=== PATIENT | female | born 1950 | race Caucasian/White ===

== ENCOUNTER 2017-06-20 16:51 | Inpatient (IN) | payer OTHER ==
[~2017-06-20] VITALS: Ht 160 cm; Wt 104.8 kg
[~2017-06-20 16:51] MED LIST: IBUP-44 PO; RISP0.251 PO; VAS10 PO; [UNRECOGNIZED DRUG - CODE] PO; [UNRECOGNIZED DRUG - CODE] PO
[2017-06-20 16:53] VITALS: BP 146/73
--- NOTE | 2017-06-20 16:53 | NUR ---
PT BIBA TO BED 3 @ 6941
[2017-06-20] MEDS ORDERED: NACL 0.9% 500 ML IV SCH (16:54)
[2017-06-20] MEDS: methylPREDNISolone SS 125 MG/2 ML VIAL IVP ONE ×2 (16:55→19:20)
[2017-06-20] MEDS ORDERED: MAG SULF 2000 MG/WATER PREMIX 50 ML IV ONE (16:55)
[2017-06-20] MEDS ORDERED: ALBUTEROL 0.083% 2.5 MG/3 ML NEBU INH ONE ×2 (16:55→18:35)
--- NOTE | 2017-06-20 16:55 | NUR ---
Patient being evaluated by physician at bedside.
--- NOTE | 2017-06-20 17:05 | NUR ---
RT AT BEDSIDE.
--- NOTE | 2017-06-20 17:13 | NUR ---
LAB AT BEDSIDE.
[2017-06-20 17:18] LABS: BASOPHILS # (AUTO) 0.7 K/uL (0.00-0.22); EOSINOPHILS # (AUTO) 0.6 K/uL (0-0.4); LYMPHOCYTES # (AUTO) 1.9 K/uL (2.5-16.5); MEAN CORPUSCULAR HEMOGLOBIN 30 pg (27-31); MEAN CORPUSCULAR HGB CONC 32 g/dL (33-37); MEAN CORPUSCULAR VOLUME 93 fL (80-94); MONOCYTES # (AUTO) 1.2 K/uL (0.8-1.0); NEUTROPHILS # (AUTO) 7.5 K/uL (1.8-7.7); PLATELET COUNT (AUTO) 300 K/uL (140-450); RED BLOOD CELL COUNT(AUTO) 2.27 MIL/uL (4.20-5.40); RED CELL DISTRIBUTION WIDTH 13.8 % (11.6-13.7); WHITE BLOOD COUNT (AUTO) 11.9 K/uL (4.8-10.8)
[2017-06-20 17:27] LABS: HEMOGLOBIN 6.8 g/dL (12.0-16.0)
[2017-06-20 17:43] LABS: PROTHROMBIN TIME 10.3 secs (10.8-13.4)
[2017-06-20 18:33] LABS: ALBUMIN 2.7 g/dL (3.4-5.0); ANION GAP 17.4 (8-16); CARBON DIOXIDE 17.1 mmol/L (21-32); CREATININE 3.1 mg/dL (0.6-1.3); TOTAL BILIRUBIN 0.1 mg/dL (0.0-1.0)
[2017-06-20 18:38] LABS: POTASSIUM 6.5 mmol/L (3.5-5.1)
[2017-06-20] MEDS ORDERED: INSULIN HUMAN REGULAR 100 UNITS/ML 10 ML VIAL IVP ONE (18:40)
[2017-06-20] MEDS ORDERED: SODIUM POLYSTYRENE 15 GM/60 ML UDBTL PO ONE (18:40)
[2017-06-20] MEDS ORDERED: DEXTROSE 50% 50 ML SYR IVP ONE (18:40)
--- NOTE | 2017-06-20 18:40 | NUR ---
RT AT BEDSIDE.
[2017-06-20] MEDS ORDERED: methylPREDNISolone SS 125 MG/2 ML VIAL ONE (19:24)
--- NOTE | 2017-06-20 19:25 | NUR ---
GOT REPORT FROM [facility]. PT. RESTING IN BED, AAO X4, UNABLE TO AMBULATE. RESPIRATIIONS ON O 2 2 LPM VIA NC, EVEN AND UNLABORED, BL LUNG CLEAR. NO C/O S/SX OF THIS TIME. VSS, ER MADE AWARE OF PT. STATUS.
--- NOTE | 2017-06-20 19:25 | NUR ---
REPORT GIVEN TO HILARIO ESCOBEDO. PT MADE AWARE.
[2017-06-20] MEDS ORDERED: ACETAMINOPHEN 325 MG TAB PO PRN (19:45)
[2017-06-20] MEDS ORDERED: HYDROcodone/APAP 7.5/325 MG 1 TAB PO PRN (19:45)
[2017-06-20] MEDS ORDERED: ONDANSETRON 4 MG/2 ML VIAL IVP PRN (19:45)
[2017-06-20] MEDS ORDERED: SODIUM POLYSTYRENE 15 GM/60 ML UDBTL PO SCH (19:45)
--- NOTE | 2017-06-20 19:45 | NUR ---
Patient will be admitted to care of . Admited to TELEMETRY. Will go to room 111A. Belongings list completed. Report to MAN/HILARIO.
--- NOTE | 2017-06-20 19:48 | NUR ---
RECEIVED FROM ER PER ANU AWAKE AND ALERT. MONGOLIAN SPEAKING. ACCOMPANIED BY DAUGHTER. PT. HISTORY OF SCHIZOPHRENIA AND DEMENTIA PER DAUGHTER. PT. DX. OF HYPERKALEMIA. IVF SITE TO LEFT HAND #20. TAHO CATHETER IN PLACE. ORIENTED TO CALL LIGHT USE AND ROOM. RAPID RESPONSE DISCUSSED WITH DAUGHTER WHO SPEAKS GOOD ARABIC AND IS THE ONE TAKING CARE OF PT. TELEMETRY MONITORING. SKIN INTACT. NO EDEMA NOTED.
[2017-06-20 20:26] VITALS: BP 119/58
[2017-06-20] MEDS ORDERED: ALBUTEROL SULFATE/IPRATROPIU 3 ML SOL IH PRN (21:30)
[2017-06-20] MEDS ORDERED: DEXTROSE 50% 50 ML SYR IVP PRN (21:30)
[2017-06-20] MEDS: DOCUSATE SODIUM 100 MG GELCAP PO SCH (21:50)
[2017-06-20] MEDS: NACL 0.9% 1,000 ML IV SCH (21:50)
[2017-06-20 22:10] LABS: CHOL/HDL RATIO 3.6 (1-4.5); FREE T4 (FREE THYROXINE) 1.06 ng/dL (0.76-1.46); MAGNESIUM 2.4 mg/dL (1.8-2.4); PHOSPHORUS 5.9 mg/dL (2.5-4.9); THYROID STIMULATING HORMONE 3.27 uIU/mL (0.34-3.74)
[2017-06-20 22:29] LABS: ANION GAP 17.6 (8-16); CARBON DIOXIDE 16.8 mmol/L (21-32); CREATININE 3.1 mg/dL (0.6-1.3)
[2017-06-20 22:36] LABS: POTASSIUM 6.4 mmol/L (3.5-5.1)
[2017-06-20 23:40] LABS: APPEARANCE,URINE SL CLOUDY (CLEAR); BILIRUBIN,URINE NEGATIVE (NEGATIVE); BLOOD, URINE 1+ (NEGATIVE); COLOR,URINE YELLOW (YELLOW); LEUKOCYTE ESTERASE ,URINE 1+ (NEGATIVE); NITRITE, URINE NEGATIVE (NEGATIVE); PH,URINE 5.5 (5.0-9.0); UGLUCOSE 1+ (NEGATIVE)
--- NOTE | 2017-06-20 23:42 | NUR ---
PT. URINE SPECIMEN SENT TO LAB ORDERED. PT. STILL AWAKE AT THIS TIME. ENCOURAGED TO SLEEP. STATED SHE IS NOT SLEEPING YET RT SHE FEELS LIKE GOING BM. PT. GIVEN KAYEXALATE P.O. RT HYPERKALEMIA DX. MEDICATION USE EXPLAINED TO DAUGHTER AND PT. CALL LIGHT AT BEDSIDE FOR EASY ACCESS.
[2017-06-20 23:47] LABS: BARBITURATE, URINE NEG. ng/ml (NEG <=200); BENZODIAZEPINE, URINE NEG. ng/mL (NEG <=200); CANNABINOID, URINE NEG. ng/mL (NEG <=50); COCAINE, URINE NEG. ng/mL (NEG <=300); OPIATE, URINE NEG. ng/mL (NEG <=2000); PHENCYCLIDINE SCREEN,URINE NEG. ng/mL (NEG <=25)
[2017-06-21] VITALS: BP 133/52
[2017-06-21] MEDS ORDERED: THEOPHYLLINE 200 MG TABER PO SCH (00:40)
[2017-06-21 00:56] LABS: ANION GAP 17.8 (8-16); CARBON DIOXIDE 16.4 mmol/L (21-32); CREATININE 3.1 mg/dL (0.6-1.3); MAGNESIUM 2.6 mg/dL (1.8-2.4); PHOSPHORUS 5.5 mg/dL (2.5-4.9)
[2017-06-21] MEDS ORDERED: risperiDONE 1 MG TAB PO ONE (01:00)
[2017-06-21] MEDS ORDERED: THEOPHYLLINE 300 MG TABER PO ONE (01:00)
[2017-06-21 01:08] LABS: POTASSIUM 6.2 mmol/L (3.5-5.1)
[2017-06-21] MEDS: BENZTROPINE 1 MG TAB PO SCH ×2 (01:11→20:51)
[2017-06-21] MEDS ORDERED: risperiDONE 1 MG TAB ONE (01:17)
--- NOTE | 2017-06-21 01:18 | NUR ---
RISPERIDAL ORDERED P.O. ADMINISTERED. ABG RESULT METABOLIC ACIDOSIS AND K LEVEL OF 6.2 AND BUN 61 RELAYED TO RESIDENT MD ANGELA . AWARE OF IT AND NO FURTHER ORDERS AT THIS TIME. BREATHING TREATMENT GIVEN BY RESPIRATORY THERAPIST.
[2017-06-21 01:19] LABS: RBC,URINE 3-10 (FEW) /HPF (0-5); WBC,URINE 16-25 (MOD) /HPF (0-5)
[2017-06-21 01:20] LABS: URINE AMORPHOUS URATE 3+ /HPF (None Seen)
[2017-06-21] MEDS ORDERED: THEOPHYLLINE 200 MG TABER PO ONE ×3 (01:35→03:05)
--- NOTE | 2017-06-21 02:12 | NUR ---
THEOPHYLLINE P.O. ADMINISTERED ORDERED BY RESIDENT . MACHINE RUG CLEANER PROVIDED PT. WITH ONE. Addendum: 06/21/17 at 0217 by Natalya Vega RN THEOPHYLLINE P.O. 200 MG. ADMINISTERED ORDERED ONCE.
[2017-06-21 04:06] VITALS: BP 148/62
[2017-06-21] MEDS: NACL 0.9% 1,000 ML IV SCH ×2 (04:51→17:01)
[2017-06-21] MEDS ORDERED: cefTRIAXone 1,000 MG VIAL ONE (04:53)
[2017-06-21] MEDS: methylPREDNISolone SS 125 MG/2 ML VIAL IVP SCH ×3 (04:54→20:50)
--- NOTE | 2017-06-21 05:27 | NUR ---
ICENTIVE SPIROMETRY GIVEN PATIENT WAS UNABLE TO FOLLOW RT ORDERS.
[2017-06-21] MEDS: INSULIN LISPRO SLIDING SCALE 100 UNITS/ML VIAL SUBQ PRN ×2 (05:50→20:56)
[2017-06-21] MEDS: BLOOD GLUCOSE MONITORING 1 DEV DEV FS SCH ×4 (05:50→20:50)
--- NOTE | 2017-06-21 06:34 | NUR ---
PT. AWAKE AT THIS TIME. NO NOTED ADVERSE REACTIONS TO ROCEPHIN IVP INFUSED. TELEMETRY MONITORING. ABLE TO VERBALIZE WELL. NO PAIN COMPLAINTS DONE. ON 02 AT 2LPM/NC. 02 SAT AT 97-98 %.
[2017-06-21] MEDS: ALBUTEROL SULFATE/IPRATROPIU 3 ML SOL IH SCH ×3 (06:38→19:20)
--- NOTE | 2017-06-21 07:17 | NUR ---
ENDORSED TO THE NEXT RN FOR CONTINUITY OF CARE. AWAKE AT THIS TIME. NO COMPLAINTS DONE.
--- NOTE | 2017-06-21 07:20 | NUR ---
RECEIVED REPORT FROM NIGHT RN. PT RESTING IN BED. AAOX3. NO S/S OF ACUTE DISTRESS. PT DENIES PAIN. IV SITE PATENT AND INTACT. ON O2 2L NC. CALL LIGHT WITHIN REACH. TELE BOX IN PLACE. CALL LIGHT WITHIN REACH. SAFETY MEASURES ENSURED. WILL CONTINUE TO MONITOR.
[2017-06-21 07:30] LABS: BASOPHILS % (AUTO) 0.2 % (0.0-2.0); LYMPHOCYTES # (AUTO) 0.5 K/uL (2.5-16.5); LYMPHOCYTES % (AUTO) 2.4 % (20.5-51.1); MEAN CORPUSCULAR HEMOGLOBIN 31 pg (27-31); MEAN CORPUSCULAR HGB CONC 33 g/dL (33-37); MEAN CORPUSCULAR VOLUME 93 fL (80-94); MONOCYTES # (AUTO) 0.8 K/uL (0.8-1.0); MONOCYTES % (AUTO) 3.5 % (1.7-9.3); NEUTROPHILS % (AUTO) 93.9 % (42.2-75.2); PLATELET COUNT (AUTO) 245 K/uL (140-450); RED BLOOD CELL COUNT(AUTO) 2.24 MIL/uL (4.20-5.40); RED CELL DISTRIBUTION WIDTH 14.2 % (11.6-13.7)
[2017-06-21 08:00] VITALS: BP 119/67
[2017-06-21] MEDS ORDERED: AMLO10TA PO (08:00)
[2017-06-21] MEDS ORDERED: METO25TA PO (08:00)
[2017-06-21 08:34] LABS: ANION GAP 16.1 (8-16); CREATININE 2.9 mg/dL (0.6-1.3)
[2017-06-21 08:35] LABS: MAGNESIUM 2.6 mg/dL (1.8-2.4); PHOSPHORUS 5.6 mg/dL (2.5-4.9)
[2017-06-21] MEDS: METOPROLOL 50 MG TAB PO SCH ×2 (08:38→20:51)
[2017-06-21] MEDS: CALCIUM ACETATE 667 MG TAB PO SCH ×2 (08:38→17:02)
[2017-06-21] MEDS: LACTOBACILLUS RHAMNOSUS GG 1 EACH CAP PO SCH ×3 (08:38→17:00)
[2017-06-21] MEDS: LACTULOSE 20 GM/30 ML UDC PO SCH ×2 (08:39→20:50)
[2017-06-21] MEDS: FERROUS SULFATE 325 MG TABEC PO SCH ×3 (08:39→17:03)
[2017-06-21] MEDS: ASCORBIC ACID 500 MG TAB PO SCH (08:39)
[2017-06-21] MEDS: DOCUSATE SODIUM 100 MG GELCAP PO SCH ×2 (08:39→20:50)
[2017-06-21] MEDS: THEOPHYLLINE 200 MG TABER PO SCH ×2 (08:39→20:51)
[2017-06-21] MEDS: amLODIPine 5 MG TAB PO SCH (08:40)
[2017-06-21 08:42] LABS: POTASSIUM 6.1 mmol/L (3.5-5.1)
--- NOTE | 2017-06-21 08:47 | NUR ---
AM MEDS GIVEN WITH EDUCATION. PT VERBALIZED UNDERSTANDING. NO S/S OF ACUTE DISTRESS. PT DENIES PAIN. WILL CONTINUE TO MONITOR.
[2017-06-21] MEDS ORDERED: ENALAPRIL 10 MG TAB PO SCH (09:00)
--- NOTE | 2017-06-21 09:18 | NUR ---
PATIENT HAS BEEN SCREENED AND CATEGORIZED HIGH NUTRITION RISK. PATIENT WILL BE SEEN WITHIN 1-2 DAYS OF ADMISSION. 06/21/17-06/22/[address]
[2017-06-21 09:42] LABS: HEMATOCRIT 20.9 % (36-48); HEMOGLOBIN 6.9 g/dL (12.0-16.0)
[2017-06-21 09:43] LABS: WHITE BLOOD COUNT (AUTO) 22.3 K/uL (4.8-10.8)
[2017-06-21] MEDS ORDERED: BISACODYL 10 MG SUPP RC SCH (10:11)
[2017-06-21] MEDS ORDERED: SODIUM BICARBONATE 8.4% 50 MEQ in NACL 0.9% 1,000 ML IV SCH (11:00)
[2017-06-21 12:00] VITALS: BP 105/60
--- NOTE | 2017-06-21 12:46 | NUR ---
PT SLEEPING NO HHN GIVEN NO SIGNS OF DISTRESS NOTED AT THIS TIME
--- NOTE | 2017-06-21 13:17 | NUR ---
PT RESTING IN BED. NO S/S OF ACUTE DISTRESS. PER RAMSES FROM PHARMACY PT SHOULD HAVE CULTURELLE DAILY NOT TID. WILL HOLD 12 DOSE.
[2017-06-21] MEDS: SODIUM BICARBONATE 8.4% 75 MEQ in NACL 0.45% 1,000 ML IV SCH (14:00)
[2017-06-21 14:25] LABS: ANION GAP 17.2 (8-16); CARBON DIOXIDE 16.7 mmol/L (21-32); CREATININE 2.9 mg/dL (0.6-1.3); POTASSIUM 5.9 mmol/L (3.5-5.1)
[2017-06-21 16:00] VITALS: BP 140/59
--- NOTE | 2017-06-21 19:15 | NUR ---
ENDORSED PLAN OF CARE TO NIGHT RN. PT REMAINS STABLE.
--- NOTE | 2017-06-21 19:20 | NUR ---
RECEIVED FROM AM RN IN BED AWAKE AND ALERT. NO SOB. DENIES ANY PAIN. ABLE TO VERBALIZE SIMPLE NEEDS WELL. TELEMETRY MONITORING. ON O2 AT 2 LPM/NC. CALL LIGHT WITH IN REACH AT ALL TIMES. BED BOUND AND NEEDS WILL BE ANTICIPATED AND MET.
[2017-06-21 20:45] VITALS: BP 134/53
[2017-06-21] MEDS: risperiDONE 1 MG TAB PO SCH (20:51)
[2017-06-21] MEDS ORDERED: risperiDONE 1 MG TAB PO SCH (21:00)
--- NOTE | 2017-06-21 22:00 | NUR ---
PT. STILL AWAKE . ENCOURAGED TO SLEEP. NO RESTLESSNESS NOTED. TELEMETRY MONITORING. CALL LIGHT WITH IN REACH.
[2017-06-22] VITALS: BP 133/56
--- NOTE | 2017-06-22 | NUR ---
PT. SLEEPING. WOKE HER UP RT PROVIDED WITH MIDNIGHT SNACK. PT. ATE ALL PROVIDED SNACK. WENT BACK TO SLEEP.
[2017-06-22] MEDS: SODIUM BICARBONATE 8.4% 75 MEQ in NACL 0.45% 1,000 ML IV SCH (00:52)
--- NOTE | 2017-06-22 01:17 | NUR ---
PT. WHEEZING . RESPIRATORY THERAPIST RENDERED BREATHING TREATMENT TO PT. PT. ABLE TO USWE CALL LIGHT FOR HELP. BED ALARM ON. BEDRIDDEN. TELEMETRY MONITORING.
--- NOTE | 2017-06-22 03:00 | NUR ---
SLEEPING. FLACC 0-. NO COMPLAINTS DONE AT THIS TIME. TELEMETRY MONITORING.
[2017-06-22 03:54] VITALS: BP 150/73
[2017-06-22] MEDS: methylPREDNISolone SS 40 MG/ML VIAL IVP SCH ×3 (04:40→20:49)
[2017-06-22] MEDS: NACL 0.9% 1,000 ML IV SCH (04:41)
--- NOTE | 2017-06-22 05:26 | NUR ---
PT. AWAKE AT THIS TIME AND CALLING HER DAUGHTER. REMINDED SHE IS IN THE HOSPITAL. TELEMETRY MONITORING. TURNED Q 2 H AND NEEDS ANTICIPATED AND MET.
[2017-06-22] MEDS: BLOOD GLUCOSE MONITORING 1 DEV DEV FS SCH ×4 (05:51→20:38)
--- NOTE | 2017-06-22 06:23 | NUR ---
PT. HAD BM THIS SHIFT X 2 WITH SOFT CONSISTENCY. KEPT CLEAN AND DRY. PT. NOTED SPEAKS SYRIAN . BLOOD SUGAR THIS AM 139. NO COVERAGE .
[2017-06-22] MEDS: ALBUTEROL SULFATE/IPRATROPIU 3 ML SOL IH SCH ×3 (07:23→20:06)
[2017-06-22] MEDS ORDERED: SODIUM POLYSTYRENE 15 GM/60 ML UDBTL PO SCH (07:24)
--- NOTE | 2017-06-22 07:40 | NUR ---
[facility], pt in bed awake alert andcalm. pt is disoriented to date, time and purpose. pt denies anp aoin, no resp distress noted. pt is able to follow command via [place] only. pt is normal sinus rhyth on the monitor. bentley cath intact and draining well. side rails up x3. ivf infusing as ordered.
[2017-06-22 07:49] LABS: BASOPHILS # (AUTO) 0.1 K/uL (0.00-0.22); BASOPHILS % (AUTO) 0.4 % (0.0-2.0); EOSINOPHILS # (AUTO) 0.1 K/uL (0-0.4); EOSINOPHILS % (AUTO) 0.7 % (0.0-4.0); LYMPHOCYTES # (AUTO) 0.9 K/uL (2.5-16.5); MEAN CORPUSCULAR HEMOGLOBIN 31 pg (27-31); MEAN CORPUSCULAR HGB CONC 34 g/dL (33-37); MEAN CORPUSCULAR VOLUME 92 fL (80-94); MONOCYTES # (AUTO) 0.4 K/uL (0.8-1.0); MONOCYTES % (AUTO) 2.1 % (1.7-9.3); NEUTROPHILS # (AUTO) 19.9 K/uL (1.8-7.7); NEUTROPHILS % (AUTO) 92.8 % (42.2-75.2); PLATELET COUNT (AUTO) 237 K/uL (140-450); RED CELL DISTRIBUTION WIDTH 13.5 % (11.6-13.7); WHITE BLOOD COUNT (AUTO) 21.4 K/uL (4.8-10.8)
[2017-06-22 08:22] LABS: ANION GAP 17.9 (8-16); CARBON DIOXIDE 17.7 mmol/L (21-32); CREATININE 2.9 mg/dL (0.6-1.3); POTASSIUM 4.6 mmol/L (3.5-5.1)
[2017-06-22 08:25] VITALS: BP 159/93
[2017-06-22 08:29] LABS: MAGNESIUM 2.5 mg/dL (1.8-2.4); PHOSPHORUS 6.2 mg/dL (2.5-4.9)
[2017-06-22 08:40] LABS: HEMATOCRIT 18.4 % (36-48); HEMOGLOBIN 6.2 g/dL (12.0-16.0)
[2017-06-22] MEDS: DOCUSATE SODIUM 100 MG GELCAP PO SCH ×2 (09:00→20:50)
[2017-06-22] MEDS: FERROUS SULFATE 325 MG TABEC PO SCH ×3 (09:18→17:28)
[2017-06-22] MEDS: LACTOBACILLUS RHAMNOSUS GG 1 EACH CAP PO SCH ×3 (09:20→17:27)
--- NOTE | 2017-06-22 09:20 | NUR ---
pt in bed resting well. no acute distress or pain reported. pt remains on 2L nc. both Dr Davis and Thierry informed about to days h/h, phos and bun/creatinine level. no blood transfusion needed per md orders. pt's daughter is at the bed site. update on pt's condition provided to pt's daughter by Dr Guadarrama. all safety measures in progress.
[2017-06-22] MEDS: amLODIPine 5 MG TAB PO SCH (09:21)
[2017-06-22] MEDS: METOPROLOL 50 MG TAB PO SCH ×2 (09:21→20:50)
[2017-06-22] MEDS: ASCORBIC ACID 500 MG TAB PO SCH (09:22)
[2017-06-22] MEDS ORDERED: EPOETIN ALFA 10,000 UNITS/ML VIAL SUBQ SCH (10:05)
[2017-06-22] MEDS ORDERED: FUROSEMIDE 40 MG/4 ML VIAL IVP SCH (10:12)
[2017-06-22] MEDS: ECOTRIN 81 MG TABEC PO SCH (11:50)
[2017-06-22] MEDS: ASPIRIN 81 MG TAB.CHEW PO SCH ×2 (12:33→12:58)
[2017-06-22] MEDS: CALCIUM ACETATE 667 MG TAB PO SCH ×2 (12:34→17:27)
--- NOTE | 2017-06-22 12:35 | NUR ---
PATIENT WITH LUNCH TRAY AT THIS TIME NO SOB NOTED BANDER TO ATTEMPT HHN THERAPY AT A LATER TIME
[2017-06-22] MEDS: INSULIN LISPRO SLIDING SCALE 100 UNITS/ML VIAL SUBQ PRN ×2 (12:37→21:14)
--- NOTE | 2017-06-22 12:55 | NUR ---
AWAKE AND ALERT NAUSEA WITH EMESIS HHN THERAPY NOT GIVEN AT THIS TIME SATURATION 96% ON SUPPLEMENTAL OXYGEN AT 2LPM VIA NC HR 75 RR 20 BREATH SOUNDS CLEAR BILATERAL POTATO CHIP PROCESSING SUPERVISOR TO ATTEMPT HHN THERAPY AT A LATER TIME
[2017-06-22] MEDS: ATORVASTATIN 20 MG TAB PO SCH (12:59)
[2017-06-22] MEDS: FERRIC GLUCONATE 125 MG in NACL 0.9% 100 ML IV SCH (13:05)
[2017-06-22] MEDS ORDERED: ATORVASTATIN 20 MG TAB PO SCH (14:00)
--- NOTE | 2017-06-22 14:38 | NUR ---
pt was given zofran 4mg ivp at 1300 after she vomited about 250 ml of brown stomach content. no acute staus changes noted. v/s stable.
--- NOTE | 2017-06-22 14:42 | NUR ---
06/22/17 RD INITIAL ASSESSMENT COMPLETED PLEASE REFER TO NUTRITION ASSESSMENT UNDER CARE ACTIVITY FOR ESTIMATED NUTRITIONAL NEEDS. 1. CONTINUE CCHO 60 GM DIET TOLERATED PER MD -NOTE PT WITH DECREASED PROTEIN NEEDS R/T CHRONIC RENAL FAILURE; PT MEETING 99% OF ESTIMATED PROTEIN NEEDS WITH CURRENT PO INTAKE 2. RD TO FOLLOW-UP 3-5 DAYS, MODERATE RISK JIARO CULVER, RD
--- NOTE | 2017-06-22 14:42 | NUR ---
FAXED INITIAL REVIEW TO [facility] [phone] PHONE DUNIA [phone]
[2017-06-22 15:20] LABS: FOLIC ACID 5.8 ng/mL (>3.0)
[2017-06-22 16:00] VITALS: BP 157/61
--- NOTE | 2017-06-22 17:37 | NUR ---
PT SITTING IN BED EATING DINNER. NO REPORTED PAIN OR N/V AT THIS TIME. PT IS ON 3l NC WITH SATURATION OF 96%. PT REMAINS SINUS RHTYHM ON THE MONITOR. ALL SAFETY MEASURES REMAINS IN PROGRESS. NO BLEEDING NOTED.
--- NOTE | 2017-06-22 19:30 | NUR ---
RECEIVED PT IN STABLE CONDITION FROM AM NURSE. SLEEPING ,BUT AROUSE EASILY WHEN NAME CALLED. FAMILY AT BEDSIDE. NO CUTE RESPIRATORY DISTRESS NOTED. WITH O22L/NC. ON TELE MONITOR . BEDREST. WITH NO C/O ANY DISCOMFORT NOR PAIN NOTED. WITH HL ON THE LT HAND #20.CLEAR AND PATENT. HAS THAO CATHETER ON GRAVITY. BED ON LOW POSITION. CALL LIGHT PLACED WITHIN EASY REACH. FREQUENT ROUNDS NEEDED. WILL CONTINUE TO MONITOR.
--- NOTE | 2017-06-22 19:46 | NUR ---
PT IN BED RESTING COMFORTABLY. PT'S DAUGHTER AT THE BED SIDE. NO ACUTE DISTRESS OR, PAIN OR NAUSEA. V/S STABLE.
[2017-06-22 20:00] VITALS: BP 144/84
[2017-06-22] MEDS: BENZTROPINE 1 MG TAB PO SCH (20:50)
[2017-06-22] MEDS: risperiDONE 1 MG TAB PO SCH (20:51)
--- NOTE | 2017-06-22 21:14 | NUR ---
BLOOD SUGAR 158. PT HAD SOME SNACK .TOLERATED WELL .
[2017-06-22 23:50] VITALS: BP 154/81
--- NOTE | 2017-06-23 02:00 | NUR ---
PT HAS BEEN TURNED TO SIDES. PLACE COMFORTABLY IN BE.
[2017-06-23 04:33] VITALS: BP 150/69
[2017-06-23] MEDS: BLOOD GLUCOSE MONITORING 1 DEV DEV FS SCH ×4 (06:10→21:57)
[2017-06-23] MEDS: INSULIN LISPRO SLIDING SCALE 100 UNITS/ML VIAL SUBQ PRN (06:11)
--- NOTE | 2017-06-23 06:11 | NUR ---
BLOOD SUGAR WAS CHECKED RESULT 166. INSULIN COVERAGE GIVEN SUB Q.
[2017-06-23] MEDS: NACL 0.45% 1,000 ML IV SCH (07:15)
--- NOTE | 2017-06-23 07:15 | NUR ---
ENDORSED PT IN STABLE CONDITION TO AM NURSE FOR CONTINUITY OF CARE.
--- NOTE | 2017-06-23 07:17 | NUR ---
RECEIVED REPORT FROM NIGHT RN. PT RESTING IN BED. AAOX2. NO S/S OF ACUTE DISTRESS.ON O2 2L NC. THAO CATHETER PATENT. IV SITE PATENT AND INTACT. PT DENIES PAIN. TELE BOX IN PLACE. CALL LIGHT WITHIN REACH. SAFETY MEASURES ENSURED. WILL CONTINUE TO MONITOR.
[2017-06-23 07:34] LABS: BASOPHILS % (AUTO) 0.3 % (0.0-2.0); EOSINOPHILS # (AUTO) 0.1 K/uL (0-0.4); LYMPHOCYTES # (AUTO) 0.9 K/uL (2.5-16.5); LYMPHOCYTES % (AUTO) 6.7 % (20.5-51.1); MEAN CORPUSCULAR HEMOGLOBIN 31 pg (27-31); MEAN CORPUSCULAR HGB CONC 33 g/dL (33-37); MEAN CORPUSCULAR VOLUME 93 fL (80-94); MONOCYTES # (AUTO) 1.3 K/uL (0.8-1.0); MONOCYTES % (AUTO) 9.7 % (1.7-9.3); NEUTROPHILS # (AUTO) 11.6 K/uL (1.8-7.7); NEUTROPHILS % (AUTO) 82.3 % (42.2-75.2); PLATELET COUNT (AUTO) 242 K/uL (140-450); RED BLOOD CELL COUNT(AUTO) 1.95 MIL/uL (4.20-5.40); RED CELL DISTRIBUTION WIDTH 13.5 % (11.6-13.7); WHITE BLOOD COUNT (AUTO) 13.9 K/uL (4.8-10.8)
[2017-06-23 07:36] LABS: MAGNESIUM 2.6 mg/dL (1.8-2.4); PHOSPHORUS 6.8 mg/dL (2.5-4.9)
[2017-06-23 07:42] LABS: CREATININE 3.1 mg/dL (0.6-1.3)
[2017-06-23 07:48] VITALS: BP 119/78
[2017-06-23] MEDS: ALBUTEROL SULFATE/IPRATROPIU 3 ML SOL IH SCH ×3 (08:11→18:32)
[2017-06-23] MEDS: FERROUS SULFATE 325 MG TABEC PO SCH ×3 (08:49→16:49)
[2017-06-23] MEDS: ASCORBIC ACID 500 MG TAB PO SCH (08:49)
[2017-06-23] MEDS: ECOTRIN 81 MG TABEC PO SCH (08:50)
[2017-06-23] MEDS: ATORVASTATIN 20 MG TAB PO SCH (08:50)
[2017-06-23] MEDS: CALCIUM ACETATE 667 MG TAB PO SCH ×3 (08:50→16:49)
[2017-06-23] MEDS: amLODIPine 5 MG TAB PO SCH (08:50)
[2017-06-23] MEDS: LACTOBACILLUS RHAMNOSUS GG 1 EACH CAP PO SCH ×2 (08:50→11:59)
[2017-06-23] MEDS: DOCUSATE SODIUM 100 MG GELCAP PO SCH ×2 (09:00→21:58)
[2017-06-23] MEDS: METOPROLOL 50 MG TAB PO SCH ×2 (09:00→21:59)
[2017-06-23] MEDS ORDERED: BENZOCAINE/MENTHOL 1 LOZ MM PRN (09:30)
--- NOTE | 2017-06-23 09:30 | NUR ---
AM MEDS GIVEN. NO S/S OF ACUTE DISTRESS. PT DENIES PAIN. CALL LIGHT WITHIN REACH. WILL CONTINUE TO MONITOR.
[2017-06-23] MEDS ORDERED: FUROSEMIDE 40 MG/4 ML VIAL IVP SCH (11:00)
[2017-06-23 11:49] VITALS: BP 139/57
[2017-06-23] MEDS: FERRIC GLUCONATE 125 MG in NACL 0.9% 100 ML IV SCH (12:00)
--- NOTE | 2017-06-23 12:08 | NUR ---
DUE MEDS GIVEN. NO S/S OF ACUTE DISTRESS. DR. MACK IN TO SEE PT. WILL CONTINUE TO MONITOR.
--- NOTE | 2017-06-23 15:48 | NUR ---
CM NOTE CONCURRENT REVIEW FAXED TO / FAX# [facility] #[phone], ATTN: DUNIA# [phone]
[2017-06-23 16:00] VITALS: BP 131/51
--- NOTE | 2017-06-23 16:26 | NUR ---
PT RESTING IN BED. NO S/S OF ACUTE DISTRESS. PT DENIES PAIN. CALL LIGHT WITHIN REACH. SAFETY MEASURES ENSURED. WILL CONTINUE TO MONITOR.
--- NOTE | 2017-06-23 19:13 | NUR ---
ENDORSED PLAN OF CARE TO NIGHT RN
--- NOTE | 2017-06-23 19:15 | NUR ---
RECEIVED PT FROM JAVIER RICH PT BULGARIAN SPEAKER AAOX1 PT CONFUSED HX DEMENTIA AND SCHIZOPHRENIA, IV ON LEFT HAND # 20, ON TELEMETRY SR,PT COOPERATIVE TO FOLLOW COMMANDS INITIAL ASSESSMENT DONE
[2017-06-23 20:00] VITALS: BP 134/58
[2017-06-23] MEDS ORDERED: risperiDONE 1 MG TAB PO SCH (21:00)
--- NOTE | 2017-06-23 21:30 | NUR ---
BLOOD SUGAR TEST 135 NOT COVERAGE PT REPOSITIONED Q2H NOT DISTRESS NOTED
[2017-06-23] MEDS: BENZTROPINE 1 MG TAB PO SCH (21:58)
[2017-06-23] MEDS: SODIUM BICARBONATE 650 MG TAB PO SCH (22:00)
--- NOTE | 2017-06-23 23:44 | NUR ---
PT REPOSITIONED SLEEPING WELL NOT DISTRESS NOTED ON TELEMETRY SR
[2017-06-24] VITALS: BP 103/44
--- NOTE | 2017-06-24 00:52 | NUR ---
PT AWAKE, CONFUSED NOT COOPERATIVE TRYING TO PULL OUT HE IV HEPLOCK ON TELEMETRY SR
--- NOTE | 2017-06-24 02:00 | NUR ---
PT RESTING ON BED NOT COOPERATIVE, CONFUSED ON TELEMETRY SR , THAO CTH DRAINING WELL YELLOW URINE, REPOSITIONED Q2H
[2017-06-24 03:59] VITALS: BP 119/49
--- NOTE | 2017-06-24 04:30 | NUR ---
SPONGE BATH GIVEN , LINEN CHANGED ON TELMETRY SR PT CONFUSED, NOT COOPERATIVE
[2017-06-24] MEDS: BLOOD GLUCOSE MONITORING 1 DEV DEV FS SCH ×2 (06:33→12:08)
--- NOTE | 2017-06-24 06:35 | NUR ---
BLOOD SUGAR TEST 126PT RESTING ON BED SR ON TELEMETRY
[2017-06-24] MEDS: ALBUTEROL SULFATE/IPRATROPIU 3 ML SOL IH SCH ×2 (06:45→12:00)
--- NOTE | 2017-06-24 06:55 | NUR ---
PT AGITATED. KEPT TAKING OFF MASK AND NASAL CANNULA. HHN TX GIVEN.
[2017-06-24] MEDS: NACL 0.45% 1,000 ML IV SCH (07:15)
--- NOTE | 2017-06-24 07:25 | NUR ---
REPORT RECEIVED FROM BRANCH GENERAL MANAGER NURSE, PT SLEEPING QUIETLY IN NAD, RESP EVEN UNLABORED ON 1L NC O2, PT AROUSES EASILY TO VOICE, DENIES PAIN OR DISCOMFORT, PLAN OF CARE REVIEWED, BED LOCKED IN LOW POSITION, SIDE RAILS UP, CALL PURVIS WITHIN REACH, WILL CONTINUE TO MONITOR.
[2017-06-24 07:58] VITALS: BP 137/68
[2017-06-24] MEDS: ASCORBIC ACID 500 MG TAB PO SCH (08:15)
[2017-06-24] MEDS: FERROUS SULFATE 325 MG TABEC PO SCH ×2 (08:15→12:47)
[2017-06-24] MEDS: ATORVASTATIN 20 MG TAB PO SCH (08:15)
[2017-06-24] MEDS: SODIUM BICARBONATE 650 MG TAB PO SCH (08:15)
[2017-06-24] MEDS: amLODIPine 5 MG TAB PO SCH (08:16)
[2017-06-24] MEDS: METOPROLOL 50 MG TAB PO SCH (08:16)
[2017-06-24] MEDS: CALCIUM ACETATE 667 MG TAB PO SCH ×2 (08:16→12:47)
[2017-06-24] MEDS: ECOTRIN 81 MG TABEC PO SCH (08:17)
[2017-06-24] MEDS: DOCUSATE SODIUM 100 MG GELCAP PO SCH (08:17)
--- NOTE | 2017-06-24 08:35 | NUR ---
AM MEDS GIVEN PT ERIC WELL, IV SITE INFILTRATED, NEW IV STARTED TO RIGHT FA 22G, ANTIBIOTIC STARTED, WILL CONTINUE TO MONTIOR,
[2017-06-24 08:59] LABS: BASOPHILS # (AUTO) 0.1 K/uL (0.00-0.22); BASOPHILS % (AUTO) 0.8 % (0.0-2.0); EOSINOPHILS # (AUTO) 0.2 K/uL (0-0.4); EOSINOPHILS % (AUTO) 1.4 % (0.0-4.0); LYMPHOCYTES # (AUTO) 1.8 K/uL (2.5-16.5); MEAN CORPUSCULAR HEMOGLOBIN 31 pg (27-31); MEAN CORPUSCULAR HGB CONC 33 g/dL (33-37); MEAN CORPUSCULAR VOLUME 92 fL (80-94); MONOCYTES # (AUTO) 1.7 K/uL (0.8-1.0); MONOCYTES % (AUTO) 12.9 % (1.7-9.3); NEUTROPHILS # (AUTO) 9.4 K/uL (1.8-7.7); NEUTROPHILS % (AUTO) 70.9 % (42.2-75.2); PLATELET COUNT (AUTO) 229 K/uL (140-450); RED BLOOD CELL COUNT(AUTO) 1.91 MIL/uL (4.20-5.40); RED CELL DISTRIBUTION WIDTH 13.2 % (11.6-13.7); WHITE BLOOD COUNT (AUTO) 13.2 K/uL (4.8-10.8)
[2017-06-24] MEDS ORDERED: LACTOBACILLUS RHAMNOSUS GG 1 EACH CAP PO SCH (09:00)
[2017-06-24] MEDS ORDERED: FUROSEMIDE 40 MG/4 ML VIAL IVP SCH (09:00)
[2017-06-24 09:05] LABS: HEMOGLOBIN 5.9 g/dL (12.0-16.0)
[2017-06-24 09:06] LABS: HEMATOCRIT 17.6 % (36-48); MAGNESIUM 2.5 mg/dL (1.8-2.4); PHOSPHORUS 5.7 mg/dL (2.5-4.9)
[2017-06-24 09:08] LABS: ANION GAP 16.4 (8-16); CARBON DIOXIDE 19.4 mmol/L (21-32); POTASSIUM 4.8 mmol/L (3.5-5.1)
[2017-06-24 09:09] LABS: CREATININE 3.1 mg/dL (0.6-1.3)
--- NOTE | 2017-06-24 09:16 | NUR ---
FAXED CONCURRENT REVIEW TO [facility] [phone] PHONE DUNIA [phone]. I SPOKE WITH DUNIA ABOUT TRANSPORT HOME. SHE WILL CALL BACK.
--- NOTE | 2017-06-24 11:20 | NUR ---
BED BATH GIVEN, PERICARE DONE, PT VOIDED IN PAD WITHOUT PROBLEM, BMX1, PT DENIES PAIN OR DISCOMFORT, WILL CONTINUE TO MONITOR.
[2017-06-24] MEDS ORDERED: ASPI-1173 PO (11:23)
[2017-06-24] MEDS ORDERED: MIRABULK PO (11:23)
[2017-06-24] MEDS ORDERED: RIS1 PO (11:23)
[2017-06-24] MEDS ORDERED: ATOR20TA40 PO (11:23)
[2017-06-24] MEDS ORDERED: PHO667 PO (11:23)
[2017-06-24] MEDS ORDERED: METO50TA99 PO (11:23)
[2017-06-24] MEDS ORDERED: FERR-18 PO (11:23)
[2017-06-24] MEDS ORDERED: DOCU-299 PO (11:23)
[2017-06-24] MEDS ORDERED: SODI650T2 PO (11:23)
[2017-06-24] MEDS ORDERED: VITC500 PO (11:23)
[2017-06-24 12:00] VITALS: BP 130/68
--- NOTE | 2017-06-24 12:20 | NUR ---
Fish Cutter call Patient's daughter Evon Kuo at to discuss, confirm and gather patient's information. Per Evon her mother has been bed bound for about a year and has no ability to get up or move around. Evon stated that patient has special equipment at home such as a wheelchair (Patient no longer uses), and oxygen that just got for patient. Per patient's daughter she monitor and coordinates mother care and services, and she will be the one making patients appointments for follow up care with existing providers after discharge. She reports that Patient has a caregiver 31/01. Evon Reports that Patient also has In home care services and patient receives about 32 hrs per weeks from a nurse that has been patients care for about a year. Evon also explained to this remote mortgage underwriter that patient requires transportation services from ALS and patient insurance covers up to 15 times of service a year. demolition worker informed patients's daughter that telephonic case manager will coordinate and set up transport for Patient back home after discharge. She agreed and provided contact information ([phone]. Patients daughter thank social research assistant for services and stated having no questions and concerns and ended call. Fish Cutter and/or telephonic case manager will follow up as needed.
--- NOTE | 2017-06-24 12:37 | NUR ---
PT IS EATING. DID NOT TAKE HHN TX. WILL CONTINUE TO MONITOR.
[2017-06-24] MEDS: FERRIC GLUCONATE 125 MG in NACL 0.9% 100 ML IV SCH (12:47)
--- NOTE | 2017-06-24 13:10 | NUR ---
EARLIER, RECEIVED A CALL FROM DUNIA FROM [facility] SHE SAID TO CALL [facility] AT [phone], I CALLED THEM AND WAS TOLD SHE WAS NOT IN THE SYSTEM. THEY SAID THAT THE PATIENT WAS IN THEIR SYSTEM UNDER IE. I CALLED FRANK FROM [facility] AND SHE SAID THAT SHE WOULD CALL ME BACK. I PUT A CALL BACK TO DUNIA FROM [facility]. FINALLY SPOKE WITH DUNIA FROM [facility] AND SHE SAID THE TRANSPORT IS UNDER IE AND TO FILL OUT THE TRANSPORTATION REQUEST FORM FROM HOSPITAL AND FAX TO [phone], WHICH I DID.
--- NOTE | 2017-06-24 13:31 | NUR ---
LULU DAUGHTER CALLED ON THE PHONE, DISCHARGE INSTRUCTION AND RX INFO AND FOLLOW UP APPOINTMENT INFO GIVEN TO LULU VERBALLY, LULU VERBALIZED FULL UNDERSTANDING, PT TO BE TRANSPORTED VIA MEDICAL TRANSPORT, CM MAKING ARRANGEMENT, WILL DC HOME WHEN TRANSPORT IS ARRANGED. WILL CONTINUE TO MONITOR.
--- NOTE | 2017-06-24 13:47 | NUR ---
RECEIVED A CALL FROM KARY FROM [facility]. SHE SAID SHE WILL BE CONTACTING [facility] FOR TRANSPORT AT [phone].
[2017-06-24] MEDS ORDERED: EPOETIN ALFA 20,000 UNITS/ML VIAL SUBQ SCH (14:25)
--- NOTE | 2017-06-24 14:30 | NUR ---
RECEIVED A CALL FROM [facility]. THEY ARE ENROUTE. JOÃO RICHDIRECTOR VALIDATION NURSE AWARE.
--- NOTE | 2017-06-24 14:35 | NUR ---
DR MACK AT BEDSIDE, EPOETIN ORDERED TO BE GIVEN BEFORE DC.
--- NOTE | 2017-06-24 14:40 | NUR ---
DAUGHTER LULU CALLED TO NOTIFY MEDICAL TRANSPORT IS ON THE WAY TO PICK HER UP, DAUGHTER AT HOME WAITING FOR PT.
--- NOTE | 2017-06-24 15:05 | NUR ---
TRANSPORT HERE, REPORT GIVEN, DC PACKET AND PERSONAL BELONGINGS GIVEN TO PT AND EMS, IV DC'D, CATH TIP INTACT, VBLEEDING CONTROLLED, DC HOME NOW.
--- NOTE | 2017-06-24 16:22 | NUR ---
Director Machine contacted Patient's daughter Evon Kuo at to request home health contact information to resume services after discharge. Information provided by Patient's daughter is visiting nurses of [place] at .
--- NOTE | 2017-06-24 16:26 | NUR ---
RECEIVED A CALL FROM DR MCDONALD. SHE WANTS TO RESUME HOME HEALTH; [facility] AND SPOKE WITH ALAN AND SHE SAID TO FAX INFORMATION TO [facility]. I CALLED [facility] [place] AND SPOKE WITH LUZ ELENA, . SHE SAID TO FAX THE INFORMATION AND ORDER TO HER AT [phone], WHICH I DID. I ALSO FA[facility]ED THE [facility] TO [facility].
== END 2017-06-24 15:05 | disposition home health service (06) | DRG 682 ==
LOC: MED 16:51 → MTU 19:21
PROVIDERS: ADMIT Family Medicine; ATTEND Family Medicine
DX: N17.0 Acute kidney failure with tubular necrosis (principal); J96.01 Acute respiratory failure with hypoxia; E43 Unspecified severe protein-calorie malnutrition; G93.41 Metabolic encephalopathy; I50.43 Acute on chronic combined systolic (congestive) and diastolic (congestive) heart failure; D68.59 Other primary thrombophilia; E11.22 Type 2 diabetes mellitus with diabetic chronic kidney disease; E11.51 Type 2 diabetes mellitus with diabetic peripheral angiopathy without gangrene; I13.0 Hypertensive heart and chronic kidney disease with heart failure and stage 1 through stage 4 chronic kidney disease, or unspecified chronic kidney disease; J45.901 Unspecified asthma with (acute) exacerbation; N39.0 Urinary tract infection, site not specified; Z68.41 Body mass index [BMI] 40.0-44.9, adult; F20.0 Paranoid schizophrenia; E87.2 Acidosis; N18.4 Chronic kidney disease, stage 4 (severe); E11.65 Type 2 diabetes mellitus with hyperglycemia; E83.39 Other disorders of phosphorus metabolism; G31.84 Mild cognitive impairment of uncertain or unknown etiology; G30.9 Alzheimer's disease, unspecified; I27.20 Pulmonary hypertension, unspecified; E83.41 Hypermagnesemia; E78.5 Hyperlipidemia, unspecified; E66.01 Morbid (severe) obesity due to excess calories; D63.8 Anemia in other chronic diseases classified elsewhere; G20 Parkinson's disease; E87.5 Hyperkalemia; Z98.891 History of uterine scar from previous surgery; Z83.3 Family history of diabetes mellitus; Z82.49 Family history of ischemic heart disease and other diseases of the circulatory system; Z87.01 Personal history of pneumonia (recurrent); Z79.899 Other long term (current) drug therapy; Z74.01 Bed confinement status
CPT/HCPCS: 36415; 36600; 71010; 76770; 80048; 80053; 80305; 81001; 82150; 82607; 82728; 82746; 82803; 82948; 83036; 83540; 83605; 83690; 83735; 83880; 84100; 84439; 84443; 84484; 85025; 85045; 85610; 85730; 86886; 86900; 86901; 87040; 87081; 87086; 87186; 93005; 93925; 93970; 94640; 96365; 96375; 99291; J0696; J0885; J1815; J1940; J2405; J2916; J2920; J2930; J3475; J3490; J7030; J7060; J7613; J7620; Q0092

== ENCOUNTER 2017-07-12 15:40 | Inpatient (IN) | payer OTHER ==
[~2017-07-12] VITALS: Ht 160 cm; Wt 72.1 kg
--- NOTE | 2017-07-12 03:47 | NUR ---
PATIENT STATES SHORTNESS OF BREATH. RT TO SEE PATIENT.
[~2017-07-12 15:40] MED LIST changes: +AMLO10TA PO; +ASPI-1173 PO; +ATOR20TA40 PO; +DOCU-299 PO; +FERR-18 PO; -IBUP-44 PO; +METO50TA99 PO; +MIRABULK PO; +PHO667 PO; +RIS1 PO; -RISP0.251 PO; +SODI650T2 PO; -VAS10 PO; +VITC500 PO; -[UNRECOGNIZED DRUG - CODE] PO
[2017-07-12 16:04] VITALS: BP 160/48
[2017-07-12] MEDS ORDERED: SODI650T2 PO (16:16)
--- NOTE | 2017-07-12 16:18 | NUR ---
ALBUT/ATROV GIVEN FIELD WHEEZES.POX 100%.BS FIELD 139. HX: DM,HTN,ASTHMA. HOME 02 2LNC PT AAOX3, REPORTS GENERAL MALIASE,LIVES WITH DTR AT HOME, STATES SHE HAS PALLET STONE INSERTER COUGH X 2DATS WORSENING LAST NIGHT. LS-WHEEZES CINDY. SKIN W/D/I. ABLE TO SPEAK IN FUKLL CLEAR SENTENCES.
--- NOTE | 2017-07-12 16:21 | NUR ---
Dr. Beltre evaluating patient at bedside.
[2017-07-12] MEDS ORDERED: NACL 0.9% 500 ML IV SCH (16:27)
[2017-07-12] MEDS ORDERED: methylPREDNISolone SS 125 MG/2 ML VIAL IVP ONE (16:30)
[2017-07-12] MEDS ORDERED: AZITHROMYCIN 500 MG in DEXTROSE 5% 250 ML IV ONE (16:30)
[2017-07-12] MEDS ORDERED: IPRATROPIUM 0.02% 0.5 MG/2.5 ML NEBU INH ONE (16:30)
[2017-07-12] MEDS ORDERED: ALBUTEROL 0.083% 2.5 MG/3 ML NEBU INH ONE (16:30)
[2017-07-12] MEDS ORDERED: cefTRIAXone 1,000 MG in DEXT 5% MINI-BAG PLUS 50 ML IV ONE (16:30)
--- NOTE | 2017-07-12 17:04 | NUR ---
technical photographer at bedside.
[2017-07-12 17:06] LABS: BASOPHILS # (AUTO) 0.1 K/uL (0.00-0.22); BASOPHILS % (AUTO) 0.9 % (0.0-2.0); EOSINOPHILS # (AUTO) 0.4 K/uL (0-0.4); LYMPHOCYTES # (AUTO) 1.3 K/uL (2.5-16.5); LYMPHOCYTES % (AUTO) 18.9 % (20.5-51.1); MEAN CORPUSCULAR HEMOGLOBIN 30 pg (27-31); MEAN CORPUSCULAR HGB CONC 33 g/dL (33-37); MEAN CORPUSCULAR VOLUME 93 fL (80-94); MONOCYTES # (AUTO) 0.9 K/uL (0.8-1.0); NEUTROPHILS # (AUTO) 4.4 K/uL (1.8-7.7); NEUTROPHILS % (AUTO) 61.2 % (42.2-75.2); PLATELET COUNT (AUTO) 171 K/uL (140-450); WHITE BLOOD COUNT (AUTO) 7.1 K/uL (4.8-10.8)
[2017-07-12 17:09] LABS: HEMOGLOBIN 6.7 g/dL (12.0-16.0)
[2017-07-12 17:10] LABS: HEMATOCRIT 20.5 % (36-48)
[2017-07-12 17:21] LABS: ALBUMIN 2.5 g/dL (3.4-5.0); ANION GAP 10.2 (8-16); CARBON DIOXIDE 25.7 mmol/L (21-32); CREATININE 2.5 mg/dL (0.6-1.3); POTASSIUM 5.9 mmol/L (3.5-5.1); TOTAL BILIRUBIN 0.2 mg/dL (0.0-1.0)
[2017-07-12 17:25] LABS: PROTHROMBIN TIME 10.3 secs (10.8-13.4)
[2017-07-12] MEDS ORDERED: cefTRIAXone 1,000 MG VIAL ONE (17:35)
[2017-07-12] MEDS ORDERED: AZITHROMYCIN 500 MG INJ VIAL IV ONE (17:35)
[2017-07-12] MEDS ORDERED: SODIUM POLYSTYRENE 15 GM/60 ML UDBTL PO ONE (17:40)
--- NOTE | 2017-07-12 17:56 | NUR ---
NO ACUTE CHNAGES IN CONDITON, PT RECEIVING ANTIBIOTICS, NO ADVERSE REACTION NOTED. VSS, WILL CONT TO MONITOR.
--- NOTE | 2017-07-12 18:51 | NUR ---
URINE COLLECTED AND SENT VIA THAO CATHERTER , NOT IN BAG.
[2017-07-12] MEDS: NACL 0.9% 1,000 ML IV SCH (18:57)
[2017-07-12] MEDS ORDERED: ACETAMINOPHEN 325 MG TAB PO PRN (19:00)
[2017-07-12] MEDS ORDERED: DOCUSATE SODIUM 100 MG GELCAP PO PRN (19:00)
[2017-07-12] MEDS ORDERED: ZOLPIDEM 5 MG TAB PO PRN (19:00)
[2017-07-12] MEDS ORDERED: MORPHINE SULFATE 2 MG/ML SYR IVP PRN (19:00)
[2017-07-12] MEDS ORDERED: ONDANSETRON 4 MG/2 ML VIAL IM/IVP PRN (19:00)
[2017-07-12] MEDS ORDERED: LORazepam 0.5 MG TAB PO PRN (19:00)
[2017-07-12] MEDS ORDERED: HYDROcodone/APAP 7.5/325 MG 1 TAB PO PRN (19:00)
--- NOTE | 2017-07-12 19:15 | NUR ---
REPORT RECEIVED FROM HILARIO LOPEZ
[2017-07-12 19:41] LABS: CHOL/HDL RATIO 4.7 (1-4.5); FREE T4 (FREE THYROXINE) 1.11 ng/dL (0.76-1.46); MAGNESIUM 2.3 mg/dL (1.8-2.4); PHOSPHORUS 3.5 mg/dL (2.5-4.9); THYROID STIMULATING HORMONE 3.45 uIU/mL (0.34-3.74)
[2017-07-12] MEDS ORDERED: PHO667 PO (19:48)
[2017-07-12] MEDS ORDERED: HYDR-1100 PO (19:48)
[2017-07-12] MEDS ORDERED: FERR-18 PO (19:48)
[2017-07-12 19:50] LABS: BARBITURATE, URINE NEG. ng/ml (NEG <=200); BENZODIAZEPINE, URINE NEG. ng/mL (NEG <=200); CANNABINOID, URINE NEG. ng/mL (NEG <=50); COCAINE, URINE NEG. ng/mL (NEG <=300); OPIATE, URINE NEG. ng/mL (NEG <=2000); PHENCYCLIDINE SCREEN,URINE NEG. ng/mL (NEG <=25)
[2017-07-12] MEDS ORDERED: ALBU0.0912 INH (19:50)
[2017-07-12] MEDS ORDERED: PRON INH (19:50)
[2017-07-12] MEDS ORDERED: ALBUTEROL SULFATE/IPRATROPIU 3 ML SOL IH PRN (19:50)
[2017-07-12] MEDS ORDERED: FERRIC GLUCONATE 125 MG in NACL 0.9% 100 ML IV SCH (20:15)
--- NOTE | 2017-07-12 20:30 | NUR ---
RECEIVED PATIENT FROM ER. PATIENT A&OX4. PATIENT DENIES PAIN. IV SITE PATENT AND INTACT. THAO CATHETER PATENT AND INTACT. NO SIGNS OR SYMPTOMS OF ACUTE DISTRESS NOTED. CALL LIGHT WITHIN REACH. WILL CONTINUE TO MONITOR.
--- NOTE | 2017-07-12 20:40 | NUR ---
Patient will be admitted to care of DR KENDRICK. Admited to TELE. Will go to room 119A. Belongings list completed. Report to HILARIO RASMUSSEN.
[2017-07-12] MEDS ORDERED: FERRIC GLUCONATE 62.5 MG/5 ML AMP IV ONE (22:13)
[2017-07-12] MEDS: METOPROLOL 50 MG TAB PO SCH (22:45)
[2017-07-12] MEDS: risperiDONE 1 MG TAB PO SCH (22:45)
[2017-07-12] MEDS: SODIUM BICARBONATE 650 MG TAB PO SCH (22:46)
[2017-07-13] VITALS: BP 140/71
[2017-07-13] MEDS ORDERED: cefTRIAXone 1,000 MG VIAL ONE (02:36)
[2017-07-13 04:00] VITALS: BP 148/84
--- NOTE | 2017-07-13 04:17 | NUR ---
PATIENT O2 SAT 100 ON 2L O2 NC. PATIENT DENIES SHORTNESS OF BREATH. NO SIGNS OR SYMPTOMS OF ACUTE DISTRESS NOTED. CALL LIGHT WITHIN REACH. WILL CONTINUE TO MONITOR.
[2017-07-13] MEDS ORDERED: methylPREDNISolone SS 125 MG/2 ML VIAL IVP SCH (06:56)
[2017-07-13] MEDS ORDERED: FERRIC GLUCONATE 125 MG in NACL 0.9% 100 ML IV SCH (07:01)
[2017-07-13 07:15] LABS: T4 (THYROXINE) 6.7 ug/dL (4.5-12.0)
[2017-07-13] MEDS: ALBUTEROL SULFATE/IPRATROPIU 3 ML SOL IH SCH ×3 (07:25→19:15)
--- NOTE | 2017-07-13 07:30 | NUR ---
RECEIVED PATIENT REPORT FROM ADOPTION SPECIALIST RN. PATIENT A&OX4. PATIENT DENIES PAIN. IV NOTED TO THE RIGHT AC, PATENT, INTACT, AND INFUSING WELL. THAO CATHETER PATENT AND INTACT, DRAINING YELLOW URINE. NO SIGNS OR SYMPTOMS OF ACUTE DISTRESS NOTED. WHITEBOARD UPDATED. BED IN LOW POSITION, CALL LIGHT WITHIN REACH. WILL CONTINUE TO MONITOR.
[2017-07-13] MEDS: BUDESONIDE 0.5 MG/2 ML NEBU INH SCH ×2 (07:31→19:15)
--- NOTE | 2017-07-13 07:31 | NUR ---
ENDORSED PLAN OF CARE TO AM RN. PATIENT IN STABLE CONDITION
[2017-07-13] MEDS: CALCIUM ACETATE 667 MG TAB PO SCH ×2 (07:51→16:37)
[2017-07-13] MEDS: FERROUS SULFATE 325 MG TABEC PO SCH ×2 (07:51→16:37)
[2017-07-13 08:00] VITALS: BP 166/58
[2017-07-13] MEDS: ASCORBIC ACID 500 MG TAB PO SCH (08:21)
[2017-07-13] MEDS: FAMOTIDINE 20 MG TAB PO SCH (08:22)
[2017-07-13] MEDS: SODIUM BICARBONATE 650 MG TAB PO SCH ×2 (08:22→20:01)
[2017-07-13] MEDS: LACTOBACILLUS RHAMNOSUS GG 1 EACH CAP PO SCH (08:22)
[2017-07-13] MEDS: LORATADINE 10 MG TAB PO SCH (08:25)
[2017-07-13] MEDS: METOPROLOL 50 MG TAB PO SCH ×2 (08:25→20:01)
[2017-07-13] MEDS: amLODIPine 5 MG TAB PO SCH (08:26)
[2017-07-13] MEDS: hydrALAZINE 25 MG TAB PO SCH (08:26)
[2017-07-13] MEDS: AZITHROMYCIN 250 MG TAB PO SCH (08:29)
[2017-07-13] MEDS: BENZTROPINE 2 MG/2 ML AMP IM SCH (08:56)
[2017-07-13 09:15] LABS: APPEARANCE,URINE CLEAR (CLEAR); BILIRUBIN,URINE NEGATIVE (NEGATIVE); BLOOD, URINE TRACE-I (NEGATIVE); COLOR,URINE YELLOW (YELLOW); LEUKOCYTE ESTERASE ,URINE NEGATIVE (NEGATIVE); NITRITE, URINE NEGATIVE (NEGATIVE); UGLUCOSE 2+ (NEGATIVE)
--- NOTE | 2017-07-13 09:20 | NUR ---
PATIENT HAS BEEN SCREENED AND CATEGORIZED MODERATE NUTRITION RISK. PATIENT WILL BE SEEN WITHIN 3-5 DAYS OF ADMISSION. 07/14/17 07/16/[address]
[2017-07-13 09:42] LABS: RBC,URINE 0-5 (RARE) /HPF (0-5)
[2017-07-13 09:43] LABS: WBC,URINE 0-5 (RARE) /HPF (0-5)
--- NOTE | 2017-07-13 10:00 | NUR ---
MADE DR. DURBIN AWARE OF BLE PITTING EDEMA. DR STATED SHE WILL CHECK THE PT.
[2017-07-13 12:00] VITALS: BP 149/66
--- NOTE | 2017-07-13 12:20 | NUR ---
DR NICKERSON HAS SEEN THE PT. PT IN STABLE CONDITION, NO SOB.
[2017-07-13] MEDS: CLINDAMYCIN 600 MG in DEXTROSE 5% 50 ML IV SCH ×2 (13:36→20:02)
[2017-07-13] MEDS: methylPREDNISolone SS 125 MG/2 ML VIAL IVP SCH ×2 (13:36→20:01)
[2017-07-13] MEDS ORDERED: LEVOFLOXACIN 750 MG/D5W PREMIX 150 ML IV ONE (14:00)
--- NOTE | 2017-07-13 14:56 | NUR ---
CM NOTE INITIAL REVIEW FAXED TO [facility] [phone] DUNIA # [phone]
[2017-07-13 16:00] VITALS: BP 143/57
[2017-07-13 16:25] LABS: ANION GAP 12.9 (8-16); CARBON DIOXIDE 23.4 mmol/L (21-32); CREATININE 2.7 mg/dL (0.6-1.3); POTASSIUM 5.3 mmol/L (3.5-5.1)
[2017-07-13] MEDS ORDERED: SODIUM POLYSTYRENE 15 GM/60 ML UDBTL PO SCH (17:00)
[2017-07-13] MEDS ORDERED: MONTELUKAST SODIUM 10 MG TAB PO SCH (17:00)
[2017-07-13] MEDS: NACL 0.9% 1,000 ML IV SCH (18:57)
--- NOTE | 2017-07-13 19:30 | NUR ---
REPORT GIVEN TO TRICOT KNITTING MACHINE OPERATOR RN. PT IN STABLE CONDITION.
--- NOTE | 2017-07-13 19:30 | NUR ---
REPORT GIVEN TO GRADE FOREMAN RN. PT IN STABLE CONDITION.
[2017-07-13 20:00] VITALS: BP 146/68
[2017-07-13] MEDS: risperiDONE 1 MG TAB PO SCH (20:01)
--- NOTE | 2017-07-13 21:16 | NUR ---
PATIENT UNABLE TO DO INCENTIVE SPIROMETER, PT STARTS PANTING INSTEAD OF INHALING SLOW DEEP BREATHS.
[2017-07-14] VITALS: BP 129/49
[2017-07-14 04:00] VITALS: BP 108/62
[2017-07-14] MEDS: methylPREDNISolone SS 40 MG/ML VIAL IVP SCH ×2 (05:51→13:47)
[2017-07-14] MEDS: CLINDAMYCIN 600 MG in DEXTROSE 5% 50 ML IV SCH ×2 (05:51→13:47)
[2017-07-14] MEDS: ALBUTEROL SULFATE/IPRATROPIU 3 ML SOL IH SCH ×2 (07:24→13:57)
[2017-07-14] MEDS: BUDESONIDE 0.5 MG/2 ML NEBU INH SCH (07:25)
--- NOTE | 2017-07-14 07:31 | NUR ---
GAVE REPORT TO DAY RN FOR CONTINUITY OF CARE, PT IN STABLE CONDITION. NO S/S OF DISTRESS NOTED. IV PATENT AND INTACT
--- NOTE | 2017-07-14 07:31 | NUR ---
RECEIVED REPORT FROM MOTORCYCLE MAKER RN. PATIENT IN STABLE CONDITION, AOX1. CONSTANT REMINDING NEEDED. RESPIRATORY EFFORT EVEN AND UNLABORED. NO SIGNS AND SYMPTOMS OF ACUTE DISTRESS NOTED AT THIS TIME. HAS IV TO RIGHT AC 20G INFUSING NS AT 50 ML/HR, INFUSING WELL. SITE IS CLEAN, DRY, PATENT AND INTACT. HAS THAO CATHETER DRAINING TO GRAVITY. DISCUSSED PLAN OF CARE WITH PATIENT AND SHE VERBALIZED UNDERSTANDING. BED IN LOWEST POSITION, SIDE RAILS UPX2, SCD'S IN PLACE, CALL LIGHT PLACED WITHIN REACH, BED ALARM ON. WILL CONTINUE TO MONITOR PATIENT.
[2017-07-14 07:51] LABS: BASOPHILS % (AUTO) 0.6 % (0.0-2.0); EOSINOPHILS % (AUTO) 0.2 % (0.0-4.0); LYMPHOCYTES # (AUTO) 0.5 K/uL (2.5-16.5); LYMPHOCYTES % (AUTO) 10.3 % (20.5-51.1); MEAN CORPUSCULAR HEMOGLOBIN 30 pg (27-31); MEAN CORPUSCULAR HGB CONC 33 g/dL (33-37); MEAN CORPUSCULAR VOLUME 92 fL (80-94); MONOCYTES # (AUTO) 0.5 K/uL (0.8-1.0); MONOCYTES % (AUTO) 10.2 % (1.7-9.3); NEUTROPHILS # (AUTO) 4.3 K/uL (1.8-7.7); NEUTROPHILS % (AUTO) 78.7 % (42.2-75.2); PLATELET COUNT (AUTO) 205 K/uL (140-450); RED BLOOD CELL COUNT(AUTO) 2.28 MIL/uL (4.20-5.40); RED CELL DISTRIBUTION WIDTH 14.5 % (11.6-13.7); WHITE BLOOD COUNT (AUTO) 5.3 K/uL (4.8-10.8)
[2017-07-14 08:00] VITALS: BP 148/62
[2017-07-14 08:10] LABS: HEMOGLOBIN 6.9 g/dL (12.0-16.0); MAGNESIUM 2.3 mg/dL (1.8-2.4); PHOSPHORUS 4.4 mg/dL (2.5-4.9)
[2017-07-14 08:11] LABS: ANION GAP 13.7 (8-16); CARBON DIOXIDE 24.3 mmol/L (21-32); CREATININE 2.7 mg/dL (0.6-1.3)
[2017-07-14] MEDS: FERROUS SULFATE 325 MG TABEC PO SCH (08:35)
[2017-07-14] MEDS: CALCIUM ACETATE 667 MG TAB PO SCH (08:35)
[2017-07-14] MEDS: LORATADINE 10 MG TAB PO SCH (08:35)
[2017-07-14] MEDS: LACTOBACILLUS RHAMNOSUS GG 1 EACH CAP PO SCH (08:35)
[2017-07-14] MEDS: amLODIPine 5 MG TAB PO SCH (08:36)
[2017-07-14] MEDS: FAMOTIDINE 20 MG TAB PO SCH (08:36)
[2017-07-14] MEDS: METOPROLOL 50 MG TAB PO SCH (08:36)
[2017-07-14] MEDS: hydrALAZINE 25 MG TAB PO SCH (08:37)
[2017-07-14] MEDS: ASCORBIC ACID 500 MG TAB PO SCH (08:37)
[2017-07-14] MEDS: AZITHROMYCIN 250 MG TAB PO SCH (08:37)
[2017-07-14] MEDS: SODIUM BICARBONATE 650 MG TAB PO SCH (08:37)
[2017-07-14] MEDS: BENZTROPINE 2 MG/2 ML AMP IM SCH (08:38)
--- NOTE | 2017-07-14 10:29 | NUR ---
CM NOTE CONCURRENT REVIEW FAXED TO [facility] [phone] DUNIA # [phone]
[2017-07-14] MEDS ORDERED: LACT10CA PO (10:45)
[2017-07-14] MEDS ORDERED: RIS1 PO (10:45)
[2017-07-14] MEDS ORDERED: LEVO500T2 PO (10:45)
--- NOTE | 2017-07-14 11:42 | NUR ---
CM NOTE FAXED HOME HEALTH CONTINUATION ORDER TO [facility] [phone] ATTN: RONI DUQUE AND LEFT [facility] RONI DUQUE A MESSAGE TO INFORM HER PH# [phone].
[2017-07-14 12:00] VITALS: BP 147/98
--- NOTE | 2017-07-14 12:00 | NUR ---
SPOKE WITH DAUGHTER TO LET HER KNOW THAT DISCHARGE ORDERS ARE IN PLACE AND EXPLAINED TO HER INSTRUCTIONS THAT DR DURBIN HAD PUT FOR THE DISCHARGE. TO HAVE PATIENT FOLLOW UP WITH PCP, AND TO ATTEND THE APPOINTMENTS THAT HAVE BEEN MADE FOR HER. SHE VERBALIZED UNDERSTANDING.
--- NOTE | 2017-07-14 13:21 | NUR ---
RONI ARIAS SPOKE WITH [facility] PH# [phone] AND SHE SAID TO FAX [facility] TRANSPORTATION FORM. FAXED [facility] TRANSPORTATION FORM TO [facility] [phone]. RECEIVED CALL FROM ASHLEIGH OF [facility] TRANSPORTATION [facility]PT PH# [phone] WHO SAID PATIENT'S AMBULANCE TRANSPORTATION GOING TO PATIENT'S HOME HAS BEEN SET UP WITH [employer] [facility] 1600 PAPER WRAPPING MACHINE OPERATOR TIME TODAY. NURSE JENNIFER OTTO TO INFORM PATIENT'S FAMILY.
--- NOTE | 2017-07-14 13:37 | NUR ---
SPOKE WITH PATIENT DAUGHTER AND LET HER KNOW THAT TRANSPORTATION WILL BE ARRIVING AROUND 1600.
--- NOTE | 2017-07-14 14:09 | NUR ---
CM NOTE RECEIVED CALL FROM DOMINIQUE OBRIEN [facility]# [phone] WHO SAID THAT HOME HEALTH WITH [facility] FOR THAO CARE HAS BEEN ARRANGED AND [facility] AWARE THAT PATIENT IS BEING DISCHARGED TODAY. NURSE JENNIFER OTTO.
[2017-07-14] MEDS: NACL 0.9% 1,000 ML IV SCH (14:57)
--- NOTE | 2017-07-14 16:55 | NUR ---
PATIENTS DISCHARGE ORDERS HAVE BEEN IN PLACE SINCE AM. TRANSPORTATION IS HERE TO TAKE PATIENT BACK TO HER HOUSE. EXPLAINED TO PATIENT WHERE SHE IS GOING, NEEDED CONSTANT REMINDING. SPOKE WITH DAUGHTER EARLIER AND STATED THE DISCHARGE INSTRUCTIONS AND WHAT MEDICATIONS SHE NEEDS TO TAKE AND WHEN AND THAT EVERYTHING IS EXPLAINED IN THE DISCHARGE PACKET WELL. GAVE DISCHARGE PACKET TO TRANSPORT CREW. ALL BELONGINGS ARE WITH PATIENT, SHE HAS A THAO CATHETER IN. HOME HEALTH ARRANGED TO COME AND CHANGE HER THAO NEEDED. REMOVED IV AND STOPPED FLUIDS AT THIS TIME. SITE IS CLEAN, AND DRY. CATHETER INTACT. ID BANDS REMOVED.
[2017-07-14] MEDS ORDERED: NACL 0.9% IV SCH (21:00)
[2017-07-14] MEDS ORDERED: CEFTRIAXONE IV SCH (21:00)
[2017-07-15] MEDS ORDERED: LEVOFLOXACIN 500 MG/D5W PREMIX 100 ML IV SCH (14:00)
== END 2017-07-14 16:55 | disposition home health service (06) | DRG 177 ==
LOC: MED 15:40 → UNDOADMIN 18:57 → MTU 18:57
PROVIDERS: ADMIT Family Medicine Sports Medicine; ATTEND Family Medicine Sports Medicine
DX: J69.0 Pneumonitis due to inhalation of food and vomit (principal); N17.0 Acute kidney failure with tubular necrosis; J96.21 Acute and chronic respiratory failure with hypoxia; E43 Unspecified severe protein-calorie malnutrition; G93.41 Metabolic encephalopathy; D68.59 Other primary thrombophilia; E11.22 Type 2 diabetes mellitus with diabetic chronic kidney disease; I50.43 Acute on chronic combined systolic (congestive) and diastolic (congestive) heart failure; J45.901 Unspecified asthma with (acute) exacerbation; I13.0 Hypertensive heart and chronic kidney disease with heart failure and stage 1 through stage 4 chronic kidney disease, or unspecified chronic kidney disease; N18.4 Chronic kidney disease, stage 4 (severe); N39.0 Urinary tract infection, site not specified; F20.0 Paranoid schizophrenia; I42.0 Dilated cardiomyopathy; E11.51 Type 2 diabetes mellitus with diabetic peripheral angiopathy without gangrene; D64.9 Anemia, unspecified; Z68.28 Body mass index [BMI] 28.0-28.9, adult; E66.3 Overweight; E87.5 Hyperkalemia; Z98.891 History of uterine scar from previous surgery; I27.20 Pulmonary hypertension, unspecified; G20 Parkinson's disease; F03.90 Unspecified dementia, unspecified severity, without behavioral disturbance, psychotic disturbance, mood disturbance, and anxiety; Z91.19 Patient's noncompliance with other medical treatment and regimen
CPT/HCPCS: 36415; 36600; 71045; 80048; 80053; 80305; 81001; 82150; 82803; 83036; 83605; 83690; 83735; 83880; 84100; 84436; 84439; 84443; 84479; 84484; 85025; 85610; 85730; 86886; 86900; 86901; 86920; 87040; 87081; 87804; 93005; 94640; 96361; 96374; 99285; J0456; J0515; J0696; J1956; J2916; J2920; J2930; J3490; J7030; J7060; J7613; J7620; J7626; J7644; Q0092

== ENCOUNTER 2017-11-22 10:48 | Inpatient (IN) | payer OTHER ==
[~2017-11-22] VITALS: Ht 165.1 cm; Wt 65.8 kg
[~2017-11-22 10:48] MED LIST changes: +ALBU0.0912 INH; -ASPI-1173 PO; -ATOR20TA40 PO; -DOCU-299 PO; +HYDR-1100 PO; +LACT10CA PO; +LEVO500T2 PO; -MIRABULK PO; +PRON INH; -VITC500 PO
--- NOTE | 2017-11-22 10:49 | NUR ---
PT BIBA [facility] FOR CHEST PAIN TO BED 2
[2017-11-22 10:55] VITALS: BP 128/88
--- NOTE | 2017-11-22 10:55 | NUR ---
PATIENT BIBA FOR ABDOMINAL PAIN AND TOOTH PAIN. PATIENT HAS HX OF DEMENTIA AND IS UNABLE TO UNDERSTAND WHAT IS BEING ASKED OF HER. CAREGIVER STATES THIS IS HER NORMAL. PATIENT HAS THAO CURRENTLY PUT IN. CAREGIVER STATES IT GETS CHANGED EVERY 1 - 2 WEEKS. PATIENT UNABLE TO RATE PAIN BUT COMPLAINS OF TOOTH PAIN. DENIES N/V/D; SKIN IS PINK/WARM/DRY; LUNGS CLEAR BL; HR EVEN AND REGULAR; PT DENIES ANY FEVER, CP, SOB, OR COUGH AT THIS TIME; VSS; PATIENT POSITIONED FOR COMFORT; HOB ELEVATED; BEDRAILS UP X2; BED DOWN. ER MD MADE AWARE OF PT STATUS.
[2017-11-22] MEDS ORDERED: LACTULOSE 20 GM/30 ML UDC PO ONE (11:10)
[2017-11-22] MEDS ORDERED: KETOROLAC 30 MG/ML VIAL IVP ONE (11:10)
[2017-11-22] MEDS ORDERED: MORPHINE SULFATE 2 MG/ML SYR IVP ONE (11:35)
[2017-11-22] MEDS ORDERED: cefTRIAXone 1,000 MG VIAL ONE (11:45)
[2017-11-22] MEDS ORDERED: MORPHINE SULFATE 4 MG/ML SYR ONE (11:46)
[2017-11-22 11:58] LABS: BASOPHILS % (AUTO) 0.5 % (0.0-2.0); EOSINOPHILS # (AUTO) 0.4 K/uL (0-0.4); EOSINOPHILS % (AUTO) 4.4 % (0.0-4.0); HEMATOCRIT 29.9 % (36-48); HEMOGLOBIN 9.8 g/dL (12.0-16.0); LYMPHOCYTES # (AUTO) 1.8 K/uL (2.5-16.5); LYMPHOCYTES % (AUTO) 19.5 % (20.5-51.1); MEAN CORPUSCULAR HEMOGLOBIN 29 pg (27-31); MEAN CORPUSCULAR HGB CONC 33 g/dL (33-37); MEAN CORPUSCULAR VOLUME 88.3 fL (80-94); MONOCYTES # (AUTO) 0.8 K/uL (0.8-1.0); MONOCYTES % (AUTO) 9.3 % (1.7-9.3); NEUTROPHILS # (AUTO) 5.9 K/uL (1.8-7.7); NEUTROPHILS % (AUTO) 66.3 % (42.2-75.2); PLATELET COUNT (AUTO) 411 K/uL (140-450); RED BLOOD CELL COUNT(AUTO) 3.38 MIL/uL (4.20-5.40)
[2017-11-22 12:01] LABS: ANION GAP 12.8 (8-16); CARBON DIOXIDE 26.6 mmol/L (21-32); CREATININE 3.2 mg/dL (0.6-1.3); POTASSIUM 5.4 mmol/L (3.5-5.1)
[2017-11-22 12:07] LABS: ALBUMIN 2.4 g/dL (3.4-5.0); TOTAL BILIRUBIN 0.2 mg/dL (0.0-1.0)
[2017-11-22] MEDS: NACL 0.9% 1,000 ML IV SCH ×3 (12:29→16:50)
--- NOTE | 2017-11-22 12:30 | NUR ---
NEW THAO PUT IN, PATIENT TOLERATED WELL. LIMITED OUTPUT. CATHETER WAS FLUSHED WITH BLOOD TINGED CLOTS RETURNED. Addendum: 11/22/17 at 1426 by LYCEEM # 16 FR Thao catheter with 10 ml utilizing sterile technique. Immediate return of 30 ml CLOUDY urine noted. Bedside drainage bag placed below level of bladder. Urine sample collected and sent to lab. Pt tolerated procedure WELL.
--- NOTE | 2017-11-22 13:30 | NUR ---
PATIETN RESTING COMFORTABLY IN BED, ASLEEP. IV FLUIDS STILL RUNNING.
--- NOTE | 2017-11-22 14:00 | NUR ---
IV FLUIDS ARE DONE. IV CONVERTED TO SALINE LOCK.
[2017-11-22] MEDS ORDERED: ONDANSETRON 4 MG/2 ML VIAL IM/IVP PRN (14:30)
[2017-11-22] MEDS ORDERED: ACETAMINOPHEN 325 MG TAB PO PRN (14:30)
[2017-11-22 14:37] LABS: APPEARANCE,URINE SL CLOUDY (CLEAR); BILIRUBIN,URINE 1+ (NEGATIVE); BLOOD, URINE 3+ (NEGATIVE); COLOR,URINE YELLOW (YELLOW); LEUKOCYTE ESTERASE ,URINE TRACE (NEGATIVE); NITRITE, URINE NEGATIVE (NEGATIVE); UGLUCOSE TRACE (NEGATIVE)
[2017-11-22 14:59] LABS: PROTHROMBIN TIME 10.5 secs (10.8-13.4)
[2017-11-22 15:00] VITALS: BP 143/59
--- NOTE | 2017-11-22 15:00 | NUR ---
Admitted from ED , with chief complaint of RT MOLAR PAIN. PT AAOX1, CONFUSED. NO SOB NOTED. NO C/O PAIN AT THIS TIME. IV TO RT AC PATENT AND INTACT. CHEST, CLEAR. ABDOMEN SOFT, BOWEL SOUNDS PRESENT. PT IS A 67 y/o ,Female, Anxious,oriented to call light, bed, phone,television, bathroom, smoking policy,visiting hours, procedures, ID bracelet on. Belongings list checked. 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 CALLED [phone], NO ANSWER, MESSAGE FULL.
--- NOTE | 2017-11-22 15:09 | NUR ---
Patient will be admitted to care of DR. GOMES. Admited to TELE. Will go to [facility]. Belongings list completed. Report to MANDEEP.
[2017-11-22 15:10] LABS: CHOL/HDL RATIO 7.7 (1-4.5); FREE T4 (FREE THYROXINE) 1.07 ng/dL (0.76-1.46); MAGNESIUM 3.8 mg/dL (1.8-2.4); PHOSPHORUS 4.5 mg/dL (2.5-4.9); THYROID STIMULATING HORMONE 2.33 uIU/mL (0.34-3.74)
[2017-11-22 15:14] LABS: BARBITURATE, URINE NEG. ng/ml (NEG <=200); BENZODIAZEPINE, URINE NEG. ng/mL (NEG <=200); CANNABINOID, URINE NEG. ng/mL (NEG <=50); COCAINE, URINE NEG. ng/mL (NEG <=300); OPIATE, URINE POS. ng/mL (NEG <=2000); PHENCYCLIDINE SCREEN,URINE NEG. ng/mL (NEG <=25)
[2017-11-22 15:32] LABS: RBC,URINE 50-80 /HPF (0-5); WBC,URINE 6-15 (FEW) /HPF (0-5)
[2017-11-22] MEDS ORDERED: MECLIZINE 25 MG TAB PO PRN (15:45)
[2017-11-22] MEDS ORDERED: QUET50TA PO (16:21)
[2017-11-22] MEDS ORDERED: QUET25TA PO ×2 (16:21)
[2017-11-22] MEDS ORDERED: ALBUTEROL SULFATE/IPRATROPIU 3 ML SOL IH PRN (16:40)
[2017-11-22] MEDS ORDERED: INSULIN LISPRO SLIDING SCALE 100 UNITS/ML VIAL SUBQ PRN (16:55)
[2017-11-22] MEDS ORDERED: DEXTROSE 50% 50 ML SYR IVP PRN (16:55)
[2017-11-22] MEDS ORDERED: LORazepam 2 MG/ML VIAL IVP SCH (17:09)
[2017-11-22] MEDS ORDERED: SODIUM POLYSTYRENE 15 GM/60 ML UDBTL PO SCH (17:17)
[2017-11-22] MEDS ORDERED: QUEtiapine FUMARATE 25 MG TAB PO SCH (17:24)
--- NOTE | 2017-11-22 17:48 | NUR ---
KAYEXALATE PO GIVEN ORDERED FOR K: 5.4. PT TOLERATED MEDICATION WELL.
[2017-11-22] MEDS: SODIUM PHOSPHATE 118 ML ENEM RC SCH ×2 (17:50→18:38)
--- NOTE | 2017-11-22 18:59 | NUR ---
PT HAD BM 2X, LARGE AMOUNTS OF SOFT BROWN STOOLS NOTED. WILL ENDORSE FLEET ENEMA TO NEXT SHIFT NURSE.
--- NOTE | 2017-11-22 19:36 | NUR ---
PT RESTING. NO SOB NOTED. NO SIGNS OF PAIN. DAUGHTER AT THE BEDSIDE, DR. POLLOCK NOTIFIED. WILL ENDORSE TO NEXT SHIFT NURSE FOR CONTINUITY OF CARE.
--- NOTE | 2017-11-22 19:37 | NUR ---
RECEIVED PT FROM LETICIA RN PT TAMAZIGHT SPEAKER AOX1 CONFUSED BUT COOPERATIVE ON TELEMETRY SR, IV ON RT ARM INFUSING WELL , PT ON LIQUID STOOL A BIG BM SPONGE BATH GIVEN AND LINEN CHANGED CALL LIGHT WITHIN REACH INITIAL ASSESSMENT DONE
[2017-11-22 20:00] VITALS: BP 150/65
--- NOTE | 2017-11-22 21:00 | NUR ---
PT HAS ANOTHER BIG BM LIQUID STTOL SPONGEE BATHGIVEN AND LINEN CHANGED ON TELMETRY ST REPOSITIONED
--- NOTE | 2017-11-22 21:30 | NUR ---
BLOOD SUGAR TEST 90
[2017-11-22] MEDS: BLOOD GLUCOSE MONITORING 1 DEV DEV FS SCH (21:36)
[2017-11-22] MEDS: QUEtiapine FUMARATE 25 MG TAB PO SCH (23:07)
--- NOTE | 2017-11-23 | NUR ---
PT REPOSITIONED AND PT HAS BEEN CHANGING LINENFOR FREQ BM LIQUID ON TELEMETRY SR
[2017-11-23 00:51] VITALS: BP 160/60
[2017-11-23 04:00] VITALS: BP 155/47
--- NOTE | 2017-11-23 04:00 | NUR ---
SPONGE BATH GIVEN LINEN CHANGED FOLEYCATH DRAINING WELL YELLOW URINE ONTELMETRYSR
[2017-11-23 06:20] LABS: T4 (THYROXINE) 6.8 ug/dL (4.5-12.0)
[2017-11-23 06:27] LABS: BASOPHILS % (AUTO) 0.6 % (0.0-2.0); EOSINOPHILS # (AUTO) 0.4 K/uL (0-0.4); EOSINOPHILS % (AUTO) 6.8 % (0.0-4.0); HEMATOCRIT 24.7 % (36-48); LYMPHOCYTES # (AUTO) 1.6 K/uL (2.5-16.5); LYMPHOCYTES % (AUTO) 27.1 % (20.5-51.1); MEAN CORPUSCULAR HEMOGLOBIN 29 pg (27-31); MEAN CORPUSCULAR HGB CONC 32 g/dL (33-37); MEAN CORPUSCULAR VOLUME 89.1 fL (80-94); MONOCYTES # (AUTO) 0.8 K/uL (0.8-1.0); MONOCYTES % (AUTO) 13.2 % (1.7-9.3); NEUTROPHILS # (AUTO) 3.1 K/uL (1.8-7.7); NEUTROPHILS % (AUTO) 52.3 % (42.2-75.2); PLATELET COUNT (AUTO) 307 K/uL (140-450); RED BLOOD CELL COUNT(AUTO) 2.77 MIL/uL (4.20-5.40)
--- NOTE | 2017-11-23 06:30 | NUR ---
CT HEAD REPORT IS NEGATIVE PT SLEEPING AT THIS TIME NOT DISTRESS NOTED SR ON TELEMETRY
[2017-11-23 06:45] LABS: ANION GAP 9.7 (8-16); CARBON DIOXIDE 24.8 mmol/L (21-32); CREATININE 2.9 mg/dL (0.6-1.3); POTASSIUM 4.5 mmol/L (3.5-5.1)
[2017-11-23 06:49] LABS: MAGNESIUM 3.6 mg/dL (1.8-2.4); PHOSPHORUS 4.2 mg/dL (2.5-4.9)
--- NOTE | 2017-11-23 07:15 | NUR ---
RECEIVED REPORT FROM RESIDENCE HALL DIRECTOR RN. PATIENT IS AAOX2, HAS NO SIGNS AND SYMPTOMS OF ACUTE DISTRESS NOTED AT THIS TIME. IV TO THE RIGHT AC 20G INFUSING NS AT 50ML/HR. SITE IS CLEAN, DRY, PATENT AND INTACT. HAS A THAO CATHETER DRAINING TO GRAVITY. DISCUSSED PLAN OF CARE WITH PATIENT AND SHE NEEDS FREQUENT REINFORCEMENT. BED IN LOWEST POSITION, SIDE RAILS UP X3, CALL LIGHT WITHIN REACH. BED ALARM ON. WILL CONTINUE TO MONITOR.
[2017-11-23 07:57] VITALS: BP 123/95
[2017-11-23 08:37] LABS: FERRITIN 588 ng/mL (15-150)
--- NOTE | 2017-11-23 09:15 | NUR ---
PATIENT HAS BEEN SCREENED AND CATEGORIZED HIGH NUTRITION RISK. PATIENT WILL BE SEEN WITHIN 1-2 DAYS OF ADMISSION. 11/23/17 11/24/[address]
[2017-11-23] MEDS: hydrALAZINE 25 MG TAB PO SCH (10:17)
[2017-11-23] MEDS: NACL 0.9% 1,000 ML IV SCH ×2 (10:18→17:00)
[2017-11-23] MEDS: ASPIRIN 81 MG TAB.CHEW PO SCH (10:18)
[2017-11-23] MEDS: amLODIPine 5 MG TAB PO SCH (10:18)
[2017-11-23] MEDS: QUEtiapine FUMARATE 25 MG TAB PO SCH ×3 (10:19→21:34)
[2017-11-23] MEDS: LACTOBACILLUS RHAMNOSUS GG 1 EACH CAP PO SCH (10:20)
[2017-11-23] MEDS ORDERED: EPOETIN ALFA 10,000 UNITS/ML VIAL SUBQ SCH (11:30)
[2017-11-23 12:00] VITALS: BP 123/49
[2017-11-23] MEDS: BLOOD GLUCOSE MONITORING 1 DEV DEV FS SCH ×3 (12:17→21:34)
--- NOTE | 2017-11-23 12:34 | NUR ---
FAXED INITIAL REVIEW TO [facility] [phone] PHONE DUNIA [phone]
--- NOTE | 2017-11-23 13:50 | NUR ---
WAS IN THE ROOM WITH ROTARY DRILL OPERATOR, AND WAS EXPLAINING TO THE PATIENT WHAT US TECH WAS DOING AND PATIENT CONTINUED TO REFUSE ANY OF THE PROCEDURES...CAROTID, RENAL, AND ARTERIAL US. EXPLAINED TO PATIENT THAT THE DR ORDERED IT AND RISKS INVOLVED IF REFUSES. PATIENT STILL REFUSING.
--- NOTE | 2017-11-23 14:30 | NUR ---
ENDORSED PATIENT TO DANIELLE RN FOR CONTINUITY OF CARE. PATIENT IS STABLE AND RESTING IN BED.
--- NOTE | 2017-11-23 14:39 | NUR ---
RECEIVED BEDSIDE REPORT FROM NURSE. PATIENT IS IN STABLE CONDITION. WILL CONTINUE TO MONITOR THE PATIENT.
--- NOTE | 2017-11-23 15:00 | NUR ---
PATIENT REFUSED XRAY. SHE STATES THAT SHE DOESNT HAVE ANY PROBLEMS AND DOES NOT NEED IT. WE EXPLAINED TO HER SHE NEEDS IT TO ASSESS ANY ISSUES THAT MY BE CREATING THE EDEMA. PATIENT STILL REFUSED.
--- NOTE | 2017-11-23 15:35 | NUR ---
11/23/17 RD INITIAL ASSESSMENT COMPLETED PLEASE REFER TO NUTRITION ASSESSMENT UNDER CARE ACTIVITY FOR ESTIMATED NUTRITIONAL NEEDS. 1. RECOMMEND RENAL AND CCHO 60 GM FULL LIQUID DIET. 2. RECOMMEND NOVASOURCE RENAL TID WHEN PO INTAKE <75%. 3. PROVIDE NUTRITION EDUCATION ABOUT RENAL AND DM 4. RD TO FOLLOW-UP 2-3 DAYS, HIGH RISK GUY OLIVARES, RD
--- NOTE | 2017-11-23 15:46 | NUR ---
PATIENT REFUSED EKG. HILARIO RODRIGUEZ. EXPLAINED ITS USE AND THE PATIENT STILL REFUSED.
[2017-11-23 16:00] VITALS: BP 107/56
--- NOTE | 2017-11-23 16:10 | NUR ---
PT REFUSED EKG. MARTA RICH HELPED TRANSLATE TO SENEGALESE BUT PT STILL REFUSED.
--- NOTE | 2017-11-23 18:45 | NUR ---
CALLED [facility] FOR TRANSPORT GAVE ALL THE INFORMATION , FOREST MANAGER TIME FROM 90 MIN TO 2 HOURS . HILARIO CONWAY AWARE . Addendum: 11/23/17 at 1943 by Carly Mina RN WRONG PATIENT
--- NOTE | 2017-11-23 19:00 | NUR ---
GAVE BEDSIDE REPORT. PATIENT IS IN STABLE CONDITION.
--- NOTE | 2017-11-23 19:30 | NUR ---
RECEIVED FROM AM RN IN BED WITH DAUGHTER VISITING. TOTAL CARE. ABLE TO VERBALIZE NEEDS WELL. NO SOB. DENIES PAIN AT THIS TIME. PT. ON TELEMETRY MONITORING. CARE PLANS FOR THE NIGHT DISCUSSED WITH THEM. CALL LIGHT WITH IN REACH. DX. OF FECAL RETENTION AND UTI. PER AM RN PT. WAS ABLE TO HAVE BM YESTERDAY. ON IV ABT FOR UTI. TELEMETRY MONITORING. AFEBRILE.
[2017-11-23 20:00] VITALS: BP 110/56
--- NOTE | 2017-11-23 20:58 | NUR ---
RECEIVED PATIENT ON ROOM AIR. O2 SAT 98%. NO RESPIRATORY DISTRESS NOTED. NO TX INDICATED AT THIS TIME. WILL CONTINUE TO MONITOR.
[2017-11-23] MEDS: ATORVASTATIN 20 MG TAB PO SCH (21:34)
--- NOTE | 2017-11-23 22:00 | NUR ---
PT. IS SLEEPING. NEEDS WILL BE ANTICIPATED AND WILL BE MET. NO RESTLESSNESS NOTED. CALL LIGHT WITH IN REACH. HX. DEMENTIA/ALZHEIMERS. TELEMETRY MONITORING.
[2017-11-23] MEDS ORDERED: PIPER/TAZO 2.25GM/D5W PREMIX 50 ML IV SCH (22:30)
--- NOTE | 2017-11-24 | NUR ---
PT. SLEEPING AT THIS TIME. WAKES UP EASILY WHEN TOUCHED. TURNED Q 2H. TOTAL CARE. DX. FECAL IMPACTION AND UTI. TELEMETRY MONITORING.
[2017-11-24] MEDS ORDERED: PIPERACILLIN/TAZOBACTAM 2.25 GM VIAL IV ONE ×2 (00:19→05:49)
[2017-11-24 00:44] LABS: TRANSFERRIN 137 mg/dL (200-370)
[2017-11-24 00:45] VITALS: BP 120/54
--- NOTE | 2017-11-24 01:23 | NUR ---
SLEEPING. NO NOTED ADVERSE REACTIONS FROM IV ABT ZOSYN INFUSED. CALL LIGHT WITH IN REACH. ALL NEEDS WILL BE ANTICIPATED AND WILL BE MET. TELEMETRY MONITORING. TURNED Q 2H WITH PILLOW SUPPORT TO PRESSURE AREAS.
[2017-11-24 03:39] VITALS: BP 145/55
--- NOTE | 2017-11-24 03:57 | NUR ---
PT. WAKES UP EASILY WHEN TURNED TO SIDES Q 2H. VITAL SIGNS TAKEN. NO COMPLAINTS DONE. TELEMETRY MONITORING. PT. REQUESTING FOR SODA. INFORMED HER THAT IT IS TOO EARLY FOR SODA. SHE NEEDS TO GO BACK TO SLEEP. "OK" GAVE APPLE JUICE AND FED WITH PUDDING EARLIER WHEN BLOOD SUGAR CHECK WAS 92 FOR 2100. NEEDS ANTICIPATED AND MET. KEPT CLEAN AND DRY. THAO CATHETER IN PLACE AND DRAINING DARK YELLOW URINE.
[2017-11-24] MEDS: NACL 0.9% 1,000 ML IV SCH ×2 (05:53→16:27)
[2017-11-24] MEDS: PIPER/TAZO 2.25GM/D5W PREMIX 50 ML IV SCH ×2 (05:53→13:15)
[2017-11-24] MEDS: BLOOD GLUCOSE MONITORING 1 DEV DEV FS SCH ×4 (05:57→20:39)
--- NOTE | 2017-11-24 06:44 | NUR ---
BLOOD SUGAR AT THIS TIME WAS 89. AWAKE AND ALERT . MADE PT. DRINK APPLE JUICE. TOLERATED WELL. TURNED Q 2H WITH PILLOW SUPPORT TO PRESSURE AREAS. NO SOB. DENIES "DOLOR" IVF SITE CHECKED INTACT AND WITH GOOD BLOOD RETURN. AFEBRILE. NO BM THIS SHIFT.
--- NOTE | 2017-11-24 07:29 | NUR ---
RECEIVED REPORT FROM PAN WASHER RN. PATIENT IS AAOX2, HAS NO SIGNS AND SYMPTOMS OF ACUTE DISTRESS NOTED AT THIS TIME. IV TO THE RIGHT AC 20G INFUSING NS AT 50ML/HR. SITE IS CLEAN, DRY, PATENT AND INTACT. HAS A THAO CATHETER DRAINING TO GRAVITY. DISCUSSED PLAN OF CARE WITH PATIENT AND SHE NEEDS FREQUENT REINFORCEMENT. BED IN LOWEST POSITION, SIDE RAILS UP X3, CALL LIGHT WITHIN REACH. BED ALARM ON. WILL CONTINUE TO MONITOR.
[2017-11-24 08:00] VITALS: BP 138/55
--- NOTE | 2017-11-24 08:38 | NUR ---
PT AWAKE AND ALERT. NO SOB OR DISTRESS NOTED . PT ON ROOM AIR. SPO2 98%. PT REFUSED ABG. WILL CONTINUE TO MONITOR.
[2017-11-24 08:39] LABS: BASOPHILS % (AUTO) 0.8 % (0.0-2.0); EOSINOPHILS # (AUTO) 0.5 K/uL (0-0.4); EOSINOPHILS % (AUTO) 7.5 % (0.0-4.0); HEMATOCRIT 25.5 % (36-48); HEMOGLOBIN 8.2 g/dL (12.0-16.0); LYMPHOCYTES # (AUTO) 1.7 K/uL (2.5-16.5); LYMPHOCYTES % (AUTO) 27.6 % (20.5-51.1); MEAN CORPUSCULAR HEMOGLOBIN 29 pg (27-31); MEAN CORPUSCULAR HGB CONC 32 g/dL (33-37); MEAN CORPUSCULAR VOLUME 89.1 fL (80-94); MONOCYTES # (AUTO) 0.8 K/uL (0.8-1.0); NEUTROPHILS # (AUTO) 3.2 K/uL (1.8-7.7); NEUTROPHILS % (AUTO) 51.1 % (42.2-75.2); PLATELET COUNT (AUTO) 348 K/uL (140-450); RED BLOOD CELL COUNT(AUTO) 2.86 MIL/uL (4.20-5.40); WHITE BLOOD COUNT (AUTO) 6.3 K/uL (4.8-10.8)
[2017-11-24 08:50] LABS: ANION GAP 11.6 (8-16); CARBON DIOXIDE 25.6 mmol/L (21-32); CREATININE 2.7 mg/dL (0.6-1.3); MAGNESIUM 3.1 mg/dL (1.8-2.4); PHOSPHORUS 3.8 mg/dL (2.5-4.9); POTASSIUM 4.2 mmol/L (3.5-5.1)
[2017-11-24] MEDS: hydrALAZINE 25 MG TAB PO SCH (09:36)
[2017-11-24] MEDS: ASPIRIN 81 MG TAB.CHEW PO SCH (09:37)
[2017-11-24] MEDS: amLODIPine 5 MG TAB PO SCH (09:37)
[2017-11-24] MEDS: QUEtiapine FUMARATE 25 MG TAB PO SCH ×3 (09:38→20:28)
[2017-11-24] MEDS: LACTOBACILLUS RHAMNOSUS GG 1 EACH CAP PO SCH (09:38)
--- NOTE | 2017-11-24 10:00 | NUR ---
Campaign Associate Notes: These auto service writer contacted Patient's daughter Evon Kuo at to discuss, confirm and gather patient's information. Per Mrs. Kuo patient do not have advance directives however; daughter is her healthcare decision maker. Patient lives at home with her daughter and has a caregiver that comes M-F 8:00am-6:00pm to care for patient while her daughter is at work. Patient has healthcare provider Dr. Vangie Real and has appointments as needed; last visit was about 2 months ago. Per daughter patient has no issues getting or taking her medications and has a hospital bed, 02 and a nebulizer as her special equipment. Patient is bedbound and do not use a wheelchair. Per daughter, Patient is currently receiving services with [facility] 1x- 2x a week and will like to reinstate their service when patient is discharged and returns back home. Patient has transportation services with [facility] ([phone] patient's daughter provided contact information to coordinate transport back for patient when she is ready and clear for discharge. Patient's daughter did not have any more questions and thanked me for the call with Patients information.
--- NOTE | 2017-11-24 10:22 | NUR ---
PIT CLERK NOTE Pt seen for swallow evaluation following clearance by HILARIO Griffin. Please refer to PIT CLERK evaluation for full report. Recommend: 1) Mechanical soft/ground texture + thin liquids w/supervision for safety. 2) Upright at 90 during and 20 min after intake. 3) Small bites/sips, slow rate, alternate bites/sips 4) No further PIT CLERK intervention indicated at this time. PVE w/HILARIO Griffin re: results and recommendations. [id number]: HENNA [id number]: HENNA [id number]: HENNA Swallow NOMS [phone]
[2017-11-24 12:00] VITALS: BP 142/55
[2017-11-24] MEDS: MORPHINE SULFATE 2 MG/ML SYR IVP PRN (13:16)
--- NOTE | 2017-11-24 13:49 | NUR ---
Concurrent review faxed to [facility] at [phone]
--- NOTE | 2017-11-24 15:15 | NUR ---
film processing utility worker notes: I call [facility] to discuss and scheduled Patient's Resume services upon Patient's discharge on 11/25/17 with current MD Order. NO response Therefore; I left a MSG, with my contact number and a request for a call back.
[2017-11-24 16:00] VITALS: BP 151/45
[2017-11-24] MEDS ORDERED: FUROSEMIDE 20 MG/2 ML VIAL IVP SCH (16:00)
[2017-11-24] MEDS ORDERED: GENTAMICIN PER PHARMACY MC PRN (17:50)
--- NOTE | 2017-11-24 17:51 | NUR ---
MADE DR CARPIO AWARE THAT LAB CALLED ME WITH RESULTS OF PATIENTS URINE PSEUDOMONAS PAVER INSTALLER MDRO. PLACED CONTACT PRECAUTION SIGN OUTSIDE PATIENTS DOOR. EDUCATED PATIENT BUT REINFORCEMENT NEEDED.
[2017-11-24] MEDS ORDERED: GENTAMICIN 100 MG in DEXTROSE 5% 100 ML IV SCH (19:00)
--- NOTE | 2017-11-24 19:30 | NUR ---
ENDORSED PATIENT TO ROLLER INSPECTOR RN FOR CONTINUITY OF CARE. PATIENT IN STABLE CONDITION.
--- NOTE | 2017-11-24 19:32 | NUR ---
RECEIVED PT FROM JAMAR RN PT ESTONIAN SPEAKER AAOX1 CONFUSED COOPERATIVE FOLLOW COMMANDS IV ON RT AC INFUSING WELL ON TELEMETRY SB NOT DISTRESS NOTED AT THIS TIME RELATIVES AT BED SIDE INITIAL ASSESSMENT DONE,
[2017-11-24 20:00] VITALS: BP 140/60
[2017-11-24] MEDS: ATORVASTATIN 20 MG TAB PO SCH (20:27)
--- NOTE | 2017-11-24 21:30 | NUR ---
BLOOD SUGAR TEST 116 PT REPOSITIONED Q2H THAO CATH DRAINING WELL YELLOW URINE
[2017-11-25] VITALS: BP 141/62
--- NOTE | 2017-11-25 | NUR ---
PT HAS BEEN REPOSITIONED Q2H NOT SIGNS OF PAIN NOTED IV ON RT AC INFUSING WELL ON TELEMETRY SB
--- NOTE | 2017-11-25 03:15 | NUR ---
REPOSITIONED Q2H ON TELEMETRY SR NOT DISTRESS NOTED , THAO CATH DRAINING WELL YELLOW URINE, IV TKOINFUSING WELL ON RT AC
[2017-11-25 04:00] VITALS: BP 143/68
--- NOTE | 2017-11-25 06:00 | NUR ---
BLOOD SUGAR TEST 82 PT ONTEL SR NOTDISTRESS NOTED REPOSITIONED Q2H
[2017-11-25] MEDS: NACL 0.9% 1,000 ML IV SCH (06:18)
[2017-11-25 06:51] LABS: BASOPHILS % (AUTO) 0.7 % (0.0-2.0); EOSINOPHILS # (AUTO) 0.5 K/uL (0-0.4); EOSINOPHILS % (AUTO) 8.7 % (0.0-4.0); HEMATOCRIT 24.8 % (36-48); HEMOGLOBIN 8.1 g/dL (12.0-16.0); LYMPHOCYTES # (AUTO) 1.6 K/uL (2.5-16.5); LYMPHOCYTES % (AUTO) 26.6 % (20.5-51.1); MEAN CORPUSCULAR HEMOGLOBIN 29 pg (27-31); MEAN CORPUSCULAR HGB CONC 33 g/dL (33-37); MEAN CORPUSCULAR VOLUME 89.1 fL (80-94); MONOCYTES # (AUTO) 0.8 K/uL (0.8-1.0); NEUTROPHILS # (AUTO) 3.2 K/uL (1.8-7.7); PLATELET COUNT (AUTO) 309 K/uL (140-450); RED BLOOD CELL COUNT(AUTO) 2.78 MIL/uL (4.20-5.40); RED CELL DISTRIBUTION WIDTH 14.7 % (11.6-13.7); WHITE BLOOD COUNT (AUTO) 6.2 K/uL (4.8-10.8)
--- NOTE | 2017-11-25 07:15 | NUR ---
[facility]
[2017-11-25] MEDS: BLOOD GLUCOSE MONITORING 1 DEV DEV FS SCH ×4 (07:20→21:08)
--- NOTE | 2017-11-25 07:30 | NUR ---
RECEIVED PT REPORT FROM TERRITORY SALES MANAGER MEDICAL RN. PATIENT IS AAOX1, NO S/S OF ACUTE DISTRESS NOTED ON ROOM AIR. IV TO THE RIGHT AC 20G INFUSING NS AT 10ML/HR. SITE IS CLEAN, DRY, PATENT AND INTACT. THAO CATHETER IN PLACE DRAINING CLEAR YELLOW URINE. BED IN LOWEST POSITION, SAFETY MEASURES IN PLACE, CALL LIGHT WITHIN REACH. BED ALARM ON. WILL CONTINUE TO MONITOR.
[2017-11-25 08:00] VITALS: BP 133/52
[2017-11-25] MEDS ORDERED: ALBUTEROL SULFATE/IPRATROPIU 3 ML SOL IH PRN (08:15)
--- NOTE | 2017-11-25 09:15 | NUR ---
Diplomatic Courier Notes: Chloe from [facility] call me back in regards Patient's Resume Home Health services upon Patient's discharge on 11/25/17. Provided Patient's information, faxed MD order, medications list at . Senior Housekeeper Leona is aware.
[2017-11-25] MEDS: hydrALAZINE 25 MG TAB PO SCH (09:19)
[2017-11-25] MEDS: QUEtiapine FUMARATE 25 MG TAB PO SCH ×3 (09:20→20:38)
[2017-11-25] MEDS: ASPIRIN 81 MG TAB.CHEW PO SCH (09:20)
[2017-11-25] MEDS: amLODIPine 5 MG TAB PO SCH (09:20)
[2017-11-25] MEDS: LACTOBACILLUS RHAMNOSUS GG 1 EACH CAP PO SCH (09:25)
[2017-11-25 10:46] LABS: ANION GAP 10.2 (8-16); CREATININE 2.8 mg/dL (0.6-1.3); POTASSIUM 4.2 mmol/L (3.5-5.1)
[2017-11-25] MEDS: HYDROcodone/APAP 7.5/325 MG 1 TAB PO PRN (10:52)
--- NOTE | 2017-11-25 10:54 | NUR ---
PT C/O RIGHT MOLAR TOOTH ACHE. NORCO GIVEN. NO SOB NOTED. THAO DRAINING YELLOW URINE.
[2017-11-25 12:00] VITALS: BP 144/56
--- NOTE | 2017-11-25 12:10 | NUR ---
FAMILY MEMBERS HELPED PT WITH LUNCH. NO S/S OF DISTRESS IN RM AIR.
--- NOTE | 2017-11-25 14:49 | NUR ---
11/25/17 RD FOLLOW UP COMPLETED PLEASE REFER TO NUTRITION ASSESSMENT UNDER CARE ACTIVITY FOR ESTIMATED NUTRITIONAL NEEDS. 1. RECOMMEND RENAL, CCHO PUREE DIET 2. RECOMMEND NOVASOURCE RENAL TID WHEN PO INTAKE <75%. 3. RD TO FOLLOW-UP 2-3 DAYS, HIGH RISK GUY OLIVARES, RD
--- NOTE | 2017-11-25 15:00 | NUR ---
REPORT GIVEN TO RUPA RICH. PT IN STABLE CONDITION.
--- NOTE | 2017-11-25 15:01 | NUR ---
RECEIVED REPORT FROM HILARIO FUENTES. PATIENT LYING DOWN IN BED SLEEPING, AROUSABLE BY VOICE. NO DISTRESS NOTED. DENIES ANY PAIN. CONTINUES TO HAVE CONFUSION. SAFETY MEASURES IN PLACE, CALL LIGHT WITHIN REACH. WILL CONTINUE TO MONITOR.
[2017-11-25] MEDS ORDERED: VITD400 PO (15:22)
[2017-11-25] MEDS ORDERED: QUET25TA46 PO (15:22)
[2017-11-25] MEDS ORDERED: ATOR20TA40 PO (15:22)
[2017-11-25] MEDS ORDERED: DOCU-299 PO (15:22)
[2017-11-25] MEDS ORDERED: ASPI81CT95 PO (15:22)
[2017-11-25 16:00] VITALS: BP 154/68
--- NOTE | 2017-11-25 17:40 | NUR ---
PATIENT LYING DOWN IN BED SLEEPING, AROUSABLE BY VOICE. NO DISTRESS NOTED. DENIES ANY PAIN. SAFETY MEASURES IN PLACE, CALL LIGHT WITHIN REACH. WILL CONTINUE TO MONITOR.
--- NOTE | 2017-11-25 19:20 | NUR ---
GAVE REPORT TO EXTRACTOR OPERATOR NURSE FOR CONTINUITY OF CARE. PATIENT IN STABLE CONDITION.
--- NOTE | 2017-11-25 19:21 | NUR ---
RECEIVED REPORT FROM [facility] NURSE GOODE AT BEDSIDE FOR CONTINUITY OF CARE. PT SLEEPING AOX1. PT IS CONFUSED D/T DX: UTI. PT IV NOTED RAC 20G NS 10ML/HR. PT HAS THAO CATHETER IN PLACE. FALL RISK BED ALARM PLACED. NO SOB, NO S/S OF DISTRESS. BED LOWERED CALL LIGHT WITHIN REACH. WILL CONTINUE TO MONITOR.
--- NOTE | 2017-11-25 19:39 | NUR ---
CAME IN TO SEE PT AND DO VITALS. PT TOLD ME TO GET OUT OF HER PRIVATE APARTMENT. I REORIENTED HER, LET HER KNOW I AM HER NURSE AND HERE TO TAKE CARE OF HER. SHE CALMED DOWN AND LET ME ASSESS VITALS. WILL CONTINUE TO MONITOR.
[2017-11-25 19:41] VITALS: BP 149/54
[2017-11-25] MEDS: CALCIUM CARB 600 MG TAB PO SCH (20:39)
[2017-11-25] MEDS: ATORVASTATIN 20 MG TAB PO SCH (20:39)
[2017-11-25] MEDS ORDERED: LEVOFLOXACIN 750 MG/D5W PREMIX 150 ML IV ONE (21:00)
[2017-11-25] MEDS ORDERED: CLINDAMYCIN 600 MG/4 ML VIAL ONE (21:12)
[2017-11-25] MEDS: CLINDAMYCIN 600 MG in DEXTROSE 5% 50 ML IV SCH (21:22)
--- NOTE | 2017-11-25 22:55 | NUR ---
PT IS CONFUSED LET PT KNOW WE NEED TO RESTART NEW IV. IV NOTED LEFT HAND 22G. ALSO DC OLD THAO AND INSERT NEW. STARTED NEW THAO CATHETER 14 [employer].
--- NOTE | 2017-11-25 23:36 | NUR ---
ASSESSED PT. PT SLEEPING. NO S/S OF DISTRESS. NO SOB. WILL CONTINUE TO MONITOR.
[2017-11-26 00:11] VITALS: BP 151/73
[2017-11-26 02:21] LABS: BILIRUBIN,URINE NEGATIVE (NEGATIVE); BLOOD, URINE 2+ (NEGATIVE); COLOR,URINE YELLOW (YELLOW); LEUKOCYTE ESTERASE ,URINE NEGATIVE (NEGATIVE); NITRITE, URINE NEGATIVE (NEGATIVE); UGLUCOSE 1+ (NEGATIVE)
[2017-11-26 02:23] LABS: APPEARANCE,URINE SLIGHTLY HAZY (CLEAR)
[2017-11-26 02:31] LABS: RBC,URINE 50-80 /HPF (0-5)
[2017-11-26] MEDS ORDERED: CLINDAMYCIN 600 MG/4 ML VIAL ONE (04:54)
[2017-11-26] MEDS: CLINDAMYCIN 600 MG in DEXTROSE 5% 50 ML IV SCH ×3 (04:57→20:18)
[2017-11-26 05:10] VITALS: BP 153/69
[2017-11-26] MEDS: NACL 0.9% 1,000 ML IV SCH (06:05)
[2017-11-26] MEDS: BLOOD GLUCOSE MONITORING 1 DEV DEV FS SCH ×4 (06:33→20:04)
[2017-11-26 07:19] LABS: ANION GAP 9.9 (8-16); CARBON DIOXIDE 25.3 mmol/L (21-32); CREATININE 2.7 mg/dL (0.6-1.3); POTASSIUM 4.2 mmol/L (3.5-5.1)
--- NOTE | 2017-11-26 07:27 | NUR ---
GAVE REPORT TO DAYSHIFT NURSE FOR CONTINUITY OF CARE.
--- NOTE | 2017-11-26 07:28 | NUR ---
RECEIVED REPORT FROM MANAGER CIVIL NURSE, PT IS RESTING IN BED, SEMI FOWLERS POSITION, PT IS AAOX1, CONFUSED ON BEDREST, PT HAS IV ON HER LT HAND, PATENT, INTACT, FLUSHING WELL, SKIN IS INTACT, THAO CATH IN PLACE, NO S/S OF RESPIRATORY DISTRESS OR DISCOMFORT NOTED, DISCUSSED PLAN OF CARE WITH PT, PT VERBALIZED UNDERSTANDING BUT RE INFORCEMENT IS NEEDED, SAFETY/FALL PRECAUTIONS ARE IN PLACE, CALL LIGHT IS WITHIN REACH, WILL CONTINUE TO MONITOR.
[2017-11-26 08:00] VITALS: BP 145/54
[2017-11-26] MEDS: VITAMIN D 400 IU TAB PO SCH (09:25)
[2017-11-26] MEDS: QUEtiapine FUMARATE 25 MG TAB PO SCH ×3 (09:26→20:19)
[2017-11-26] MEDS: ASPIRIN 81 MG TAB.CHEW PO SCH (09:26)
[2017-11-26] MEDS: CALCIUM CARB 600 MG TAB PO SCH ×2 (09:27→20:19)
[2017-11-26] MEDS: amLODIPine 5 MG TAB PO SCH (09:27)
[2017-11-26] MEDS: hydrALAZINE 25 MG TAB PO SCH (09:28)
[2017-11-26] MEDS: LACTOBACILLUS RHAMNOSUS GG 1 EACH CAP PO SCH (09:28)
--- NOTE | 2017-11-26 09:30 | NUR ---
DUE MEDICATIONS GIVEN, PATIENT TOLERATED WELL, CALL LIGHT WITHIN REACH, BED IN LOWEST POSITION.
[2017-11-26 12:00] VITALS: BP 147/53
[2017-11-26] MEDS: HYDROcodone/APAP 7.5/325 MG 1 TAB PO PRN (12:13)
--- NOTE | 2017-11-26 12:30 | NUR ---
PATIENT RESTING IN BED, FAMILY AT BEDSIDE. BED IN LOWEST POSITION AND CALL LIGHT WITHIN REACH
--- NOTE | 2017-11-26 13:19 | NUR ---
PATIENT RESTING IN BED, FAMILY AT BEDSIDE
--- NOTE | 2017-11-26 14:30 | NUR ---
PATIENT IS RESTING IN BED. IV AND THAO TUBING OR ORGANIZED TO PREVENT INJURY. BED IN LOWEST POSITION AND CALL LIGHT IS WITHIN REACH
[2017-11-26 16:00] VITALS: BP 145/100
--- NOTE | 2017-11-26 16:30 | NUR ---
PATIENT CONTINUES TO REST IN BED. BECOMES CONFUSED AT TIMES, WILL CONTINUE TO REORIENTATE NEEDED. BED IN LOWEST POSITION, CALL LIGHT WITHIN REACH, AND CONTINUING TO MAKE HOURLY ROUNDS TO PREVENT INJURY
--- NOTE | 2017-11-26 19:12 | NUR ---
ENDORSED PATIENT TO QUALITY IMPROVEMENT ANALYST NURSE TO CONTINUE PLAN OF CARE. PATIENT STABLE AT THIS TIME
--- NOTE | 2017-11-26 19:13 | NUR ---
RECEIVED PT REPORT FROM DAYSMEFT NURSE FOR CONTINUITY OF CARE. PT AAOX3. PT IS STILL A BIT CONFUSED AT TIMES. PT IS CALM. IV NOTED L HAND NS 10ML/HR. NO SOB NO S/S OF DISTRESS. PT ON RA. BED LOWERED. BED ALARM PLACED. THAO IN PLACE. WILL CONTINUE TO MONITOR.
[2017-11-26 19:42] VITALS: BP 108/51
[2017-11-26] MEDS: ATORVASTATIN 20 MG TAB PO SCH (20:19)
--- NOTE | 2017-11-26 21:00 | NUR ---
PT TOOK MEDS JUST FINE. SHE REQUESTED WE LEAVE HER ALONE TO LET HER REST.
--- NOTE | 2017-11-27 00:18 | NUR ---
PT IS ANXIOUS AND AWAKE. ADVISE PT WE ARE GOING TO ROTATE HER. PT AGREED AND LEFT LIGHT ON AT HER REQUEST WILL CONTINUE TO MONITOR.
[2017-11-27 00:19] VITALS: BP 153/47
--- NOTE | 2017-11-27 03:10 | NUR ---
PT IS SLEEPING WILL CONTINUE TO MONITOR.
[2017-11-27] MEDS: CLINDAMYCIN 600 MG in DEXTROSE 5% 50 ML IV SCH ×3 (04:03→20:34)
[2017-11-27] MEDS: MORPHINE SULFATE 2 MG/ML SYR IVP PRN (04:03)
[2017-11-27 04:20] VITALS: BP 156/62
[2017-11-27] MEDS: NACL 0.9% 1,000 ML IV SCH (06:01)
--- NOTE | 2017-11-27 07:15 | NUR ---
GAVE REPORT TO DAYSHIFT NURSE AT BEDSIDE FOR CONTINUITY OF CARE.
--- NOTE | 2017-11-27 07:20 | NUR ---
RECEIVED REPORT FROM CIGAR TOBACCO REHANDLER NURSE, PT IS SLEEPING IN BED BUT EASILY AWAKEN, PT IS AAOX1, CONFUSED ON BEDREST, PT HAS IV ON HER LT HAND, PATENT, INTACT, FLUSHING WELL, SKIN IS INTACT, THAO CATH IN PLACE, NO S/S OF RESPIRATORY DISTRESS OR DISCOMFORT NOTED, DISCUSSED PLAN OF CARE WITH PT, PT VERBALIZED UNDERSTANDING BUT RE INFORCEMENT IS NEEDED, SAFETY/FALL PRECAUTIONS ARE IN PLACE, CALL LIGHT IS WITHIN REACH, WILL CONTINUE TO MONITOR.
[2017-11-27] MEDS: BLOOD GLUCOSE MONITORING 1 DEV DEV FS SCH ×4 (07:32→20:33)
[2017-11-27 07:34] LABS: BASOPHILS % (AUTO) 0.5 % (0.0-2.0); EOSINOPHILS # (AUTO) 0.3 K/uL (0-0.4); EOSINOPHILS % (AUTO) 5.4 % (0.0-4.0); HEMATOCRIT 24.3 % (36-48); HEMOGLOBIN 7.9 g/dL (12.0-16.0); LYMPHOCYTES # (AUTO) 1.2 K/uL (2.5-16.5); MEAN CORPUSCULAR HEMOGLOBIN 29 pg (27-31); MEAN CORPUSCULAR HGB CONC 33 g/dL (33-37); MEAN CORPUSCULAR VOLUME 88.9 fL (80-94); MONOCYTES % (AUTO) 15.5 % (1.7-9.3); NEUTROPHILS # (AUTO) 3.8 K/uL (1.8-7.7); NEUTROPHILS % (AUTO) 59.6 % (42.2-75.2); PLATELET COUNT (AUTO) 310 K/uL (140-450); RED BLOOD CELL COUNT(AUTO) 2.74 MIL/uL (4.20-5.40); RED CELL DISTRIBUTION WIDTH 14.9 % (11.6-13.7); WHITE BLOOD COUNT (AUTO) 6.4 K/uL (4.8-10.8)
[2017-11-27 07:36] LABS: ANION GAP 9.8 (8-16); CARBON DIOXIDE 25.5 mmol/L (21-32); CREATININE 2.6 mg/dL (0.6-1.3); POTASSIUM 4.3 mmol/L (3.5-5.1)
[2017-11-27 08:00] VITALS: BP 135/56
[2017-11-27] MEDS: DOCUSATE SODIUM 100 MG GELCAP PO PRN (08:44)
[2017-11-27] MEDS: QUEtiapine FUMARATE 25 MG TAB PO SCH ×3 (08:44→20:34)
[2017-11-27] MEDS: ASPIRIN 81 MG TAB.CHEW PO SCH (08:45)
[2017-11-27] MEDS: VITAMIN D 400 IU TAB PO SCH (08:45)
[2017-11-27] MEDS: CALCIUM CARB 600 MG TAB PO SCH ×2 (08:45→20:34)
[2017-11-27] MEDS: LACTOBACILLUS RHAMNOSUS GG 1 EACH CAP PO SCH (08:45)
[2017-11-27] MEDS: hydrALAZINE 25 MG TAB PO SCH (08:46)
[2017-11-27] MEDS: amLODIPine 5 MG TAB PO SCH (08:46)
--- NOTE | 2017-11-27 08:58 | NUR ---
DUE MEDICATIONS GIVEN, PT TOLERATED WELL, PT REPOSITIONED FOR COMFORT, CALL LIGHT IS WITHIN REACH, WILL CONTINUE TO MONITOR.
--- NOTE | 2017-11-27 11:09 | NUR ---
PT RESTING IN BED AT THIS TIME, NO S/S OF RESPIRATORY DISTRESS OR DISCOMFORT NOTED, FAMILY MEMBER IS AT BEDSIDE.
[2017-11-27] MEDS: HYDROcodone/APAP 7.5/325 MG 1 TAB PO PRN ×2 (11:40→20:33)
[2017-11-27 11:52] VITALS: BP 149/47
--- NOTE | 2017-11-27 13:45 | NUR ---
PT IS SLEEPING IN BED AT THIS TIME, CALL LIGHT WITHIN REACH.
--- NOTE | 2017-11-27 15:50 | NUR ---
PT IS SLEEPING IN BED AT THIS TIME.
[2017-11-27 16:00] VITALS: BP 159/57
--- NOTE | 2017-11-27 17:30 | NUR ---
DR. PATEL AT PATIENT'S BEDSIDE AT THIS TIME.
--- NOTE | 2017-11-27 19:10 | NUR ---
ENDORSED PT TO TECHNICAL INFORMATION SPECIALIST NURSE FOR CONTINUITY OF CARE, PT STABLE AT THIS TIME.
--- NOTE | 2017-11-27 19:11 | NUR ---
RECEIVED BEDSIDE REPORT FROM DAY SHIFT NURSE JUANI RN, PT STABLE, NO DISTRESS NOTED, IV TO L HAND 22G RUNNING NS AT 10ML/HR, INFUSING WELL, PT ON ROOM AIR NO SOB, THAO IN PLACE DRAINING YELLOW URINE, PT SLEEPING, INITIAL ASSESSMENT DONE, ALL SAFETY PRECAUTION MET, WILL CONTINUE TO MONITOR.
[2017-11-27] MEDS: LEVOFLOXACIN 500 MG/D5W PREMIX 100 ML IV SCH (20:33)
[2017-11-27] MEDS: ATORVASTATIN 20 MG TAB PO SCH (20:34)
--- NOTE | 2017-11-27 20:38 | NUR ---
DUE MEDICATION ADMINISTERED, PT STATED HAVING PAIN ON THE R ARM, PAIN MEDICATION GIVEN, PT TOLERATED WELL, NO DISTRESS NOTED, CALL LIGHT WITHIN REACH, WILL CONTINUE TO MONITOR.
[2017-11-27 21:26] VITALS: BP 150/47
--- NOTE | 2017-11-27 22:01 | NUR ---
PT SLEEPING, NO DISTRESS NOTED, CALL LIGHT WITHIN REACH, WILL CONTINUE TO MONITOR.
[2017-11-28] VITALS (7 sets, daily range): BP systolic 110–160; BP diastolic 37–79
--- NOTE | 2017-11-28 00:07 | NUR ---
CHECKED ON PT, PT SLEEPING, NO DISTRESS NOTED, V/S TAKEN, PT STABLE, CALL LIGHT WITHIN REACH, WILL CONTINUE TO MONITOR.
--- NOTE | 2017-11-28 02:03 | NUR ---
CHECKED ON PT, PT SLEEPING, NO DISTRESS NOTED, CALL LIGHT WITHIN REACH, WILL CONTINUE TO MONITOR.
--- NOTE | 2017-11-28 04:11 | NUR ---
CHECKED ON PT, PT SLEEPING, EASY TO AROUSE, PT STILL CONFUSED, NO DISTRESS NOTED, CALL LIGHT WITHIN REACH, WILL CONTINUE TO MONITOR.
[2017-11-28] MEDS: HYDROcodone/APAP 7.5/325 MG 1 TAB PO PRN ×2 (05:21→10:42)
[2017-11-28] MEDS: CLINDAMYCIN 600 MG in DEXTROSE 5% 50 ML IV SCH (05:21)
[2017-11-28] MEDS: BLOOD GLUCOSE MONITORING 1 DEV DEV FS SCH ×4 (05:55→21:05)
[2017-11-28] MEDS: NACL 0.9% 1,000 ML IV SCH ×3 (06:18→22:25)
[2017-11-28 06:24] LABS: BASOPHILS % (AUTO) 0.6 % (0.0-2.0); EOSINOPHILS # (AUTO) 0.4 K/uL (0-0.4); EOSINOPHILS % (AUTO) 6.2 % (0.0-4.0); HEMOGLOBIN 7.8 g/dL (12.0-16.0); LYMPHOCYTES # (AUTO) 1.8 K/uL (2.5-16.5); MEAN CORPUSCULAR HEMOGLOBIN 29 pg (27-31); MEAN CORPUSCULAR HGB CONC 32 g/dL (33-37); MEAN CORPUSCULAR VOLUME 88.9 fL (80-94); MONOCYTES # (AUTO) 1.2 K/uL (0.8-1.0); MONOCYTES % (AUTO) 16.6 % (1.7-9.3); NEUTROPHILS # (AUTO) 3.7 K/uL (1.8-7.7); NEUTROPHILS % (AUTO) 51.6 % (42.2-75.2); PLATELET COUNT (AUTO) 328 K/uL (140-450); RED CELL DISTRIBUTION WIDTH 14.9 % (11.6-13.7); WHITE BLOOD COUNT (AUTO) 7.1 K/uL (4.8-10.8)
[2017-11-28 06:52] LABS: ANION GAP 9.8 (8-16); CARBON DIOXIDE 24.1 mmol/L (21-32); POTASSIUM 4.9 mmol/L (3.5-5.1)
--- NOTE | 2017-11-28 07:11 | NUR ---
ENDORSED PLAN OF CARE TO DAY SHIFT NURSE DANIELLE RN, PT STABLE, NO DISTRESS NOTED, CALL LIGHT WITHIN REACH.
--- NOTE | 2017-11-28 07:12 | NUR ---
RECEIVED BEDSIDE REPORT FROM INTERCELL CONNECTOR PLACER NURSE. PATIENT IS SLEEPING. SHE IS EASILY AROUSABLE. CONFUSED, ALERT AND ORIENTEDX2. PATIENT THINKS SHE IS HOME, REORIENTED HER AND TOLD HER SHE IS IN [facility]. SHE IS BEDBOUND. SKIN IS INTACT. IV ON L HAND 22G INFUSING NS AT 10ML/HR. IV IS WRAPPED, CLEAN, DRY AND INTACT. SHE IS ON A TELE MONITOR. THAO IN PLACE. PATIENT IS INCONTINENT. SHE HAS BEDSIDE COMMODE, AMBULATE WITH ASSISTANCE. CONTACT PRECAUTIONS IN PLACE FOR MDRO IN URINE. BED IN LOW POSITION. CALL LIGHT WITHIN REACH. WILL CONTINUE TO MONITOR THE PATIENT.
[2017-11-28] MEDS: amLODIPine 5 MG TAB PO SCH (09:57)
[2017-11-28] MEDS: CALCIUM CARB 600 MG TAB PO SCH (09:57)
[2017-11-28] MEDS: ASPIRIN 81 MG TAB.CHEW PO SCH (09:58)
[2017-11-28] MEDS: LACTOBACILLUS RHAMNOSUS GG 1 EACH CAP PO SCH (09:58)
[2017-11-28] MEDS: hydrALAZINE 25 MG TAB PO SCH (09:58)
[2017-11-28] MEDS: VITAMIN D 400 IU TAB PO SCH (09:58)
[2017-11-28] MEDS: QUEtiapine FUMARATE 25 MG TAB PO SCH ×3 (09:59→20:27)
--- NOTE | 2017-11-28 10:15 | NUR ---
ADMINISTERED MEDS. PATIENT TOLERATED WELL. WILL CONTINUE TO MONITOR THE PATIENT. BED IN LOW POSITION. CALL LIGHT WITHIN REACH.
--- NOTE | 2017-11-28 10:59 | NUR ---
PATIENT IS SLEEPING. NO SIGNS OF DISTRESS ON ROOM AIR. EASILY AROUSABLE. WILL CONTINUE TO MONITOR THE PATIENT.
[2017-11-28] MEDS: CLINDAMYCIN PHOS 600MG/D5W PM 50 ML IV SCH ×2 (12:59→20:27)
--- NOTE | 2017-11-28 13:04 | NUR ---
FAXED CONCURRENT REVIEW TO [facility] [phone] PHONE DUNIA [phone]
--- NOTE | 2017-11-28 14:31 | NUR ---
11/28/17 RD FOLLOW UP COMPLETED PLEASE REFER TO NUTRITION ASSESSMENT UNDER CARE ACTIVITY FOR ESTIMATED NUTRITIONAL NEEDS. 1. RECOMMEND RENAL, CCHO PUREE DIET 2. RECOMMEND NOVASOURCE RENAL TID WHEN PO INTAKE <75% 3. RD TO FOLLOW-UP 2-3 DAYS, HIGH RISK GUY OLIVARES, RD
--- NOTE | 2017-11-28 14:51 | NUR ---
PATIENT IS SLEEPING. NO SIGNS OF DISTRESS ON ROOM AIR. WILL CONTINUE TO MONITOR THE PATIENT. BED IN LOW POSITION. CALL LIGHT WITHIN REACH. WILL CONTINUE TO MONITOR THE PATIENT.
[2017-11-28] MEDS ORDERED: GENTAMICIN PER PHARMACY MC PRN (16:05)
[2017-11-28] MEDS: MORPHINE SULFATE 2 MG/ML SYR IVP PRN (16:42)
--- NOTE | 2017-11-28 16:44 | NUR ---
ADMINISTERED PRN MORPHINE TO HELP WITH PAIN AND TO HELP DECREASE B/P. WILL REASSESS PAIN AND B/P
--- NOTE | 2017-11-28 17:22 | NUR ---
B/P DROPPED A LITTLE 153/51. WILL CONTINUE TO MONITOR THE PATIENT. BED IN LOW POSITION. CALL LIGHT WITHIN REACH. WILL CONTINUE TO MONITOR THE PATIENT.
--- NOTE | 2017-11-28 19:12 | NUR ---
GAVE BEDSIDE REPORT TO PRESSER FIRST NURSE. PATIENT IS IN STABLE CONDITION.
--- NOTE | 2017-11-28 19:15 | NUR ---
RECEIVED PT IN STABLE CONDITION FROM AM NURSE. PT IS AWAKE,ALERT X2. CONFUSED. ON TELE MONITOR. WITH NO S/S OF ANY DISCOMFORT NOR PAIN NOTED. ON BEDREST. WITH IVF INFUSING WELL ON THE LT HAND#22. CLEAR AND PATENT. ABDOMEN SOFT,NON TENDER. WITH THAO CATH TO GRAVITY. BED ON LOWEST POSITION, SIDE RAILS UP X2. CALL LIGHT PLACED WITHIN EASY REACH . FREQUENT ROUNDS NEEDED. ON CONTACT ISOLATION DUE TO MDRO URINE. WILL CONTINUE TO MONITOR.
[2017-11-28] MEDS: ATORVASTATIN 20 MG TAB PO SCH (20:27)
--- NOTE | 2017-11-28 21:05 | NUR ---
BLOOD SUGAR WAS CHKECED RESULT 108. NO INSULIN COVERAGE NEEDED, PT HAD SOME APPLE SAUCE. WILL COTINUE TO MONITOR.
--- NOTE | 2017-11-28 22:30 | NUR ---
REPOSITIONED FOR COMFORT. NO C/O ANY PAIN NOTED.
--- NOTE | 2017-11-28 23:30 | NUR ---
ASLEEP. NO S/S OF ANY DISCOMFORT NOTED. WILL CONTINUE TO MONITOR.
--- NOTE | 2017-11-28 23:55 | NUR ---
RESULT OF REPEAT URINE CULTURE FROM THAO CATHETER RESULT NEGATIVE FOR MDRO. CONTACT ISOLATION DISCONTINUED.
[2017-11-29 00:09] VITALS: BP 144/42
--- NOTE | 2017-11-29 01:00 | NUR ---
MADE ROUNDS. PT IS ASLEEP. NO S/S OF ANY DISCOMFORT /PAIN NOTED. WILL CONTINUE TO MONITOR.
--- NOTE | 2017-11-29 03:00 | NUR ---
JOEY MARTINEZ. PT ASLEEP. NO S/S OF ANY DISCOMFORT NOR PAIN NOTED.
--- NOTE | 2017-11-29 04:00 | NUR ---
REPOSITIONED PT FOR COMFORT. NO S/S OF ANY PAIN NOTED.
[2017-11-29 04:05] VITALS: BP 149/55
[2017-11-29] MEDS: CLINDAMYCIN PHOS 600MG/D5W PM 50 ML IV SCH ×3 (05:13→21:09)
--- NOTE | 2017-11-29 05:52 | NUR ---
BLOOD WAS DRAWN THIS AM. WILL FOLLOW UP RESULTS.
[2017-11-29] MEDS: BLOOD GLUCOSE MONITORING 1 DEV DEV FS SCH ×4 (06:03→21:04)
[2017-11-29 06:47] LABS: ANION GAP 10.6 (8-16); CARBON DIOXIDE 22.9 mmol/L (21-32); POTASSIUM 4.5 mmol/L (3.5-5.1)
--- NOTE | 2017-11-29 07:22 | NUR ---
ENDORSED PT IN STABLE CONDITION TO AM NURSE.
[2017-11-29 07:35] LABS: MAGNESIUM 1.7 mg/dL (1.8-2.4); PHOSPHORUS 3.3 mg/dL (2.5-4.9)
[2017-11-29 08:00] VITALS: BP 140/65
--- NOTE | 2017-11-29 08:00 | NUR ---
PATIENT AWAKE, ALERT. RESPIRATION EVEN, UNLABOR ON ROOM AIR. SKIN DRY AND WARM. IV PATENT AND INTACT. THAO DRAINING WELL. DENIED PAIN AT THIS TIME. PLAN OF CARE WAS DISCUSSED WITH PATIENT. BED AT LOW POSITION, SIDE RAILS UP. CALL LIGHT WITHIN REACH.
[2017-11-29] MEDS: NACL 0.9% 1,000 ML IV SCH ×2 (08:25→19:21)
[2017-11-29] MEDS: amLODIPine 5 MG TAB PO SCH (09:09)
[2017-11-29] MEDS: VITAMIN D 400 IU TAB PO SCH (09:09)
[2017-11-29] MEDS: QUEtiapine FUMARATE 25 MG TAB PO SCH ×3 (09:10→21:01)
[2017-11-29] MEDS: hydrALAZINE 25 MG TAB PO SCH (09:10)
[2017-11-29] MEDS: LACTOBACILLUS RHAMNOSUS GG 1 EACH CAP PO SCH (09:10)
[2017-11-29] MEDS: DOCUSATE SODIUM 100 MG GELCAP PO PRN (09:10)
[2017-11-29] MEDS: ASPIRIN 81 MG TAB.CHEW PO SCH (09:27)
[2017-11-29] MEDS ORDERED: LACT10CA1 PO (09:44)
[2017-11-29] MEDS ORDERED: LEVO500T2 PO (09:44)
[2017-11-29] MEDS ORDERED: CLIN300C2 PO (09:44)
--- NOTE | 2017-11-29 11:41 | NUR ---
PATIENT AWAKE, ALERT. RESPIRATION EVEN, UNLABOR ON ROOM AIR. VS IS STABLE. DENIED PAIN AT THIS TIME. NO DISTRESS NOTED. CALL LIGHT WITHIN REACH. THAO DRAINING WELL
[2017-11-29 12:00] VITALS: BP 151/49
[2017-11-29] MEDS ORDERED: LEVO750T2 PO (13:27)
[2017-11-29] MEDS ORDERED: CLIN150C1 PO (13:27)
--- NOTE | 2017-11-29 14:22 | NUR ---
FAXED CONCURRENT REVIEW TO [facility] [phone] PHONE DUNIA [phone]. SPOKE WITH DUNIA AND INFORMED HER PATIENT GOING HOME TODAY AND WILL HAVE HER HOME HEALTH CONTINUED.+
--- NOTE | 2017-11-29 14:47 | NUR ---
CALLED AND INFORMED DAUGHTER, LULU, REGARDING PATIENT BEING DISCHARGE HOME TODAY. WILL CALL BACK AND UPDATE WITH TRANSPORTATION SCHEDULE
--- NOTE | 2017-11-29 15:45 | NUR ---
PATIENT IS AWAKE, ALERT. RESPIRATION EVEN, UNLABOR ON ROOM AIR. VS IS STABLE. DENIED PAIN AT THIS TIME. NO DISTRESS NOTED. CALL LIGHT WITHIN REACH.
[2017-11-29 16:00] VITALS: BP 148/46
--- NOTE | 2017-11-29 16:27 | NUR ---
I CALLED [facility]. PER LYNNE, THEY WILL START TOMORROW . PHONE [phone]
--- NOTE | 2017-11-29 16:42 | NUR ---
CALLED [facility] AND SPOKE WITH DELFIN. THE AUTH FOR TRANSPORT HOME WITH [facility] IS [id number]. CALLED [facility] AND SET UP [facility]SPORT FOR 8:30P.Shyam OTTO.
--- NOTE | 2017-11-29 17:49 | NUR ---
DR. BALL WAS MADE AWARE OF MG 1.7, WILL MEDICATE PER ORDER
[2017-11-29] MEDS ORDERED: MAGNESIUM OXIDE 400 MG TAB PO SCH (17:50)
--- NOTE | 2017-11-29 18:28 | NUR ---
PATIENT IS SLEEPING COMFORTABLY. RESPIRATION EVEN, UNLABOR ON ROOM AIR. THAO DRAINING WELL. NO DISTRESS NOTED AT THIS TIME. CALL LIGHT WITHIN REACH
--- NOTE | 2017-11-29 19:00 | NUR ---
DISCHARGE INSTRUCTION AND PRESCRIPTION WERE GIVEN AND EXPLAINED TO THE PATIENT AND DAUGHTER. DAUGHTER VERBALIZED UNDERSTANDING. DAUGHTER WAS MADE AWARE THE NEURO UROLOGIST TIME IS 830PM
--- NOTE | 2017-11-29 19:25 | NUR ---
ENDORSEMENT GIVEN TO THE ENVELOPE MACHINE ADJUSTER NURSE. PATIENT IS STABLE AT THIS TIME.
--- NOTE | 2017-11-29 19:25 | NUR ---
RECEIVED PATIENT AWAKE LYING ON BED. FALL PRECAUTION IMPLEMENTED. CALL LIGHT WITHIN REACH. WILL CONTINUE TO MONITOR.
[2017-11-29] MEDS: LEVOFLOXACIN 500 MG/D5W PREMIX 100 ML IV SCH (19:43)
[2017-11-29 20:00] VITALS: BP 134/53
[2017-11-29] MEDS: ATORVASTATIN 20 MG TAB PO SCH (21:02)
--- NOTE | 2017-11-29 22:03 | NUR ---
PATIENT WAS PICK- UP BY THE [facility]. PAPERWORK GIVEN AND PERSONAL BELONGINGS. REMOVE IV ACCESS . THAO CATHETER STILL IN PLACE PER ORDER. PATIENT LEFT IN STABLE CONDITION.
== END 2017-11-29 22:15 | disposition home health service (06) | DRG 177 ==
LOC: MED 10:48 → MTU 14:32
PROVIDERS: ADMIT Family Medicine; ATTEND Family Medicine
DX: J69.0 Pneumonitis due to inhalation of food and vomit (principal); J96.20 Acute and chronic respiratory failure, unspecified whether with hypoxia or hypercapnia; N17.0 Acute kidney failure with tubular necrosis; E43 Unspecified severe protein-calorie malnutrition; G93.41 Metabolic encephalopathy; E11.21 Type 2 diabetes mellitus with diabetic nephropathy; D68.59 Other primary thrombophilia; I50.43 Acute on chronic combined systolic (congestive) and diastolic (congestive) heart failure; N18.5 Chronic kidney disease, stage 5; N39.0 Urinary tract infection, site not specified; J44.1 Chronic obstructive pulmonary disease with (acute) exacerbation; F20.0 Paranoid schizophrenia; I13.0 Hypertensive heart and chronic kidney disease with heart failure and stage 1 through stage 4 chronic kidney disease, or unspecified chronic kidney disease; E11.51 Type 2 diabetes mellitus with diabetic peripheral angiopathy without gangrene; E83.41 Hypermagnesemia; E86.0 Dehydration; D64.9 Anemia, unspecified; E11.69 Type 2 diabetes mellitus with other specified complication; I27.20 Pulmonary hypertension, unspecified; E11.22 Type 2 diabetes mellitus with diabetic chronic kidney disease; E87.5 Hyperkalemia; K56.41 Fecal impaction; Z68.24 Body mass index [BMI] 24.0-24.9, adult; Z98.891 History of uterine scar from previous surgery; D63.1 Anemia in chronic kidney disease; K44.9 Diaphragmatic hernia without obstruction or gangrene; M19.90 Unspecified osteoarthritis, unspecified site; I25.10 Atherosclerotic heart disease of native coronary artery without angina pectoris; M51.37 Other intervertebral disc degeneration, lumbosacral region; F02.80 Dementia in other diseases classified elsewhere, unspecified severity, without behavioral disturbance, psychotic disturbance, mood disturbance, and anxiety; G30.9 Alzheimer's disease, unspecified; E11.65 Type 2 diabetes mellitus with hyperglycemia; E78.1 Pure hyperglyceridemia; E78.5 Hyperlipidemia, unspecified; E83.42 Hypomagnesemia; Z74.01 Bed confinement status; Z71.3 Dietary counseling and surveillance; M81.0 Age-related osteoporosis without current pathological fracture
CPT/HCPCS: 36415; 51702; 70450; 71045; 73610; 76604; 80048; 80053; 80305; 81001; 82150; 82607; 82728; 82746; 82948; 83036; 83540; 83690; 83735; 83880; 84100; 84436; 84439; 84443; 84479; 84484; 84703; 85025; 85045; 85610; 85730; 87070; 87081; 87086; 87186; 87205; 92610; 93880; 93970; 94640; 96361; 96365; 96375; 99285; J0696; J0885; J1580; J1644; J1815; J1885; J1940; J1956; J2060; J2270; J2405; J2543; J3490; J7030; J7060; J7620; Q0092